=== PATIENT | female | born 1940 | race Caucasian/White ===

== ENCOUNTER 2024-08-29 14:21 | Outpatient (CLI) | payer MEDICARE, SELFPAY ==
--- NOTE | ~2024-08-29 | XR_ITS ---
XR hip LT min 2V Ordering provider: Buddy Cohen MD History: . M25.559 - Pain in unspecified hip . Comparison: None. FINDINGS: BONES: No acute fracture or dislocation. HIP JOINT SPACES: Moderate osteoarthritic changes. SACROILIAC JOINT SPACES/LUMBAR SPINE: The sacroiliac joint spaces shows left sacroiliitis.. Mild dege nerative changes of the visualized lower lumbar spine. PUBIC SYMPHYSIS: Pubic symphysitis. SOFT TISSUES: Normal. IMPRESSION: No acute osseous abnormality pelvis and left hip. Left moderate hip osteoarthritic changes. Reviewed, dictated and finalized at location A.
--- OUTSIDE RECORDS SUMMARY | 2024-08-29 15:19 | XMS_ITS | Encounter Summary ---
Author Organization [facility] Healthcare Address [address] [place] [address] Care Team Providers Care Wire Inserter Name Role Phone Shayne Vaz MD Unavailable Yanique Cota NP Primary Care Provider [phone] Encounter Details Date Type Department Care Team (Late st Contact Info) Description 08/21/2024 Results Follow-Up [facility] Medical Group Primary Care at [address] [address] Yanique Cota NP [address] [place] [address] Urine culture Urine, bladder Social History Tobacco Use Types Packs/Day Years Used Date Smoking Tobacco: Never Passive Smoke Exposure: Never Smokeless Tobacco: Never Alcohol Use Standard Drinks/Week Comments No 0 (1 standard drink = 0.6 oz pur e alcohol) Social Connection and Isolat ion Panel [NHANES] Answer Date Recorded In a typical week, how many times do you talk on the phone with family, friends, or neighbors? More than three times a week 12/21/2022 How often do you get togethe r with friends or relatives? More than three times a week 12/21/2022 How often do you attend [facility] or spiritism services? More than 4 times per year 12/21/2022 Do you belong to any clubs o r organizations such as oriental orthodox groups, unions, fraternal or athletic groups, or school groups? Yes 12/21/2022 How often do you attend meet ings of the clubs or organizations you belong to? More than 4 times per year 12/21/2022 Are you , , di vorced, , never , or living with a partner? 12/21/2022 AUDIT-C Answer Date Recorded Q1: How often do you have a drink containing alcohol? Never 05/01/2024 Q2: How many drinks containi ng alcohol do you have on a typical day when you are drinking? Patient does not drink Q3: How often do you have si x or more drinks on one occasion? Never 05/01/2024 Overall Financial Resource Strain (CARDIA) Answe r Date Recorded How hard is it for you to pa y for the very basics like food, housing, medical care, and heating? Not hard at all 12/21/2022 PHQ-2 Answer Date Recorded PHQ-2 Total Score (If total score is 3 or more points, staff should administer the PHQ-9) 0 08/18/2024 PRAPARE - Transportation Answer Date Re corded In the past 12 months, has l ack of transportation kept you from medical appointments or from getting medications? No 11/2022 In the past 12 months, has l ack of transportation kept you from meetings, work, or from getting things needed for daily living? No 12/21/2022 Housing Stability Vital Sign Answer Gordy e Recorded In the last 12 months, was t here a time when you were not able to pay the mortgage or rent on time? No 12/21/2022 In the last 12 months, how many places have you lived? 1 12/21/2022 In the last 12 months, was t here a time when you did not have a steady place to sleep or slept in a [place] [facility] [place] (including now)? No 12/21/2022 Personal Safety Answer Date Recorded Have you ever been in or are you currently in a harmful physical or emotional relationship or is someone making you feel afraid or unsafe? 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 [address] [place] [address] PCP - General Family Medicine 06/28/23 Shayne Vaz MD [address] [facility] [address] [place] [address] Consulting Physician Neurology 12/19/22 documented as of this encounter
--- OUTSIDE RECORDS SUMMARY | 2024-08-29 15:19 | XMS_ITS | Encounter Summary ---
Author Organization [facility] Healthcare Address [address] [place] [address] Care Team Providers Care Latin American Studies Professor Name Role Phone Shayne Vaz MD Unavailable Yanique Cota DIRECTOR OF RELIGIOUS LIFE Primary Care Provider [phone] Encounter Details Date Type Department Care Team (Late st Contact Info) Description 08/01/2024 Results Follow-Up [facility] Medical Group Primary Care at [address] [address] Zoë Devine NP [address] [place] [address] Thyroid Function [place] Social History Tobacco Use Types Packs/Day Years [...] week 12/21/2022 How often do you attend [facility] or tenriism services? More than 4 times per year 12/21/2022 Do you belong to any clubs o r organizations such as mandaeism groups, unions, fraternal or athletic groups, or [...] points, staff should administer the PHQ-9) 0 05/01/2024 PRAPARE - Transportation Answer Date Re corded [...] place to sleep or slept in a correction (including now)? No 12/21/2022 Personal Safety Answer Date Recorded Have you ever been in or are you currently in a harmful physical or emotional relationship or is someone making you feel afraid or unsafe? 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
--- OUTSIDE RECORDS SUMMARY | 2024-08-29 15:19 | XMS_ITS | Encounter Summary ---
Author Organization [facility] Address [address] [place] [address] Phone Care Team Providers Care Mud Engineer Name Role Phone Vishnu De La Fuente MD Primary Care Provider [phone] Shayne Vaz MD Unavailable Lisa Abreu RN Unavailable [phone] Yanique Cota NP Primary Care Provider [phone] Encounter Details Date Type Department Care Team (Late st Contact Info) Description 03/27/[address] 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 us Historical Provider LAB BLOOD ORDERABLES Emily l Result documented in this encounter Visit Diagnoses Not on filedocumented in this encounter Additional Health Concerns Infection Onset Date Last Indicated Resolved Time COVID: Suspected 12/13/2022 12/13/2022 12/13/2022 4:59 PM CDT documented as of this encounter Care Teams Mud Engineer Relationship Specialty Start Date End Date Vishnu De La Fuente MD PCP - General Internal Medicine 02/03/17 06/27/23 Yanique Cota NP [address] [facility] [address] [place] [address] PCP - General Family Medicine 06/28/23 Shayne Vaz MD [address] [facility] [address] [place] [address] Consulting Physician Neurology 12/19/22 Lisa Abreu RN [address] [place] [address] [address] [place] [address] Oracle Programmer Analyst 12/21/22 01/20/23 documented as of this encounter
--- OUTSIDE RECORDS SUMMARY | 2024-08-29 15:19 | XMS_ITS | Encounter Summary ---
Author Organization [facility] Healthcare Address [address] [place] [address] Care Team Providers Care Spool Cleaner Name Role Phone Shayne Vaz MD Unavailable Yanique Cota NP Primary Care Provider [phone] Reason for Visit * Reason Onset Date Comments Symptom Based Call 08/18/2024 Encounter Details Date Type Department Care Team (Late st Contact Info) Description 08/18/2024 Telephone [facility] Medical Group Primary Care at [address] [place] [address] Yanique Cota NP [address] [place] [address] Symptom Based Call Social History Tobacco Use Types Packs/Day Years [...] week 12/21/2022 How often do you attend chur ch or sikh services? More than 4 times per year 12/21/2022 Do you belong to any clubs o r organizations such as pentecostalism groups, unions, fraternal or athletic groups, or [...] place to sleep or slept in a jail (including now)? No 12/21/2022 Personal Safety Answer Date Recorded Have you ever been in or are you currently in a harmful physical or emotional relationship or is someone making you feel afraid or unsafe? 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 Non-Emergent. Is this a new or reoccurring symptom(s)? new What have you tried to help your symptom(s)? Nothing Why was appointment not scheduled? Patient seeking care without an appointment; appointment was offered by . Additional Comments: patient thinks she may have a uti as she is having crazy dreams No other symptoms Is asking to have an order for a urinalysis sent over to [facility] Does message need to be routed? Yes-Action Needed documented in this encounter Plan of Treatment Not on file documented as of this encounter Visit Diagnoses Not on filedocumented in this encounter Care Teams Spool Cleaner Relationship Specialty Start Date End Date Yanique Cota NP [address] [facility] [address] [place] [address] PCP - General Family Medicine 06/28/23 Shayne Vaz MD [address] [facility] [address] [place] [address] Consulting Physician Neurology 12/19/22 documented as of this encounter
--- OUTSIDE RECORDS SUMMARY | 2024-08-29 15:19 | XMS_ITS | Encounter Summary ---
Author Organization [facility] Address [address] [place] [address] Phone Care Team Providers Care Colorer Hides And Skins Name Role Phone Vishnu De La Fuente MD Primary Care Provider [phone] Shayne Vaz MD Unavailable Lisa Abreu RN Unavailable [phone] Yanique Cota NP Primary Care Provider [phone] Encounter Details Date Type Department Care Team (Late st Contact Info) Description 08/02/2017 Orders Only [facility] ProviderTahir MD [facility] [place] [address] Social History Tobacco Use Types Packs/Day Years Used Date Smoking Tobacco: Never Smokeless Tobacco: Never Alcohol Use Standard Drinks/Week Comments No 0 (1 standard drink = 0.6 oz pur e alcohol) Comments Unknown Sex and Gender Information Value Date Recorded Sex Assigned at Not on file 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 us Historical Provider LAB BLOOD ORDERABLES Emily l Result documented in this encounter Visit Diagnoses Not on filedocumented in this encounter Additional Health Concerns Infection Onset Date Last Indicated Resolved Time COVID: Suspected 12/13/2022 12/13/2022 12/13/2022 4:59 PM CDT documented as of this encounter Care Teams Colorer Hides And Skins Relationship Specialty Start Date End Date Vishnu De La Fuente MD PCP - General Internal Medicine 02/03/17 06/27/23 Yanique Cota NP [address] [facility] [address] [place] [address] PCP - General Family Medicine 06/28/23 Shayne Vaz MD [address] [facility] [address] [place] [address] Consulting Physician Neurology 12/19/22 Lisa Abreu RN [address] [place] [address] [address] [place] [address] Caponizer 12/21/22 01/20/23 documented as of this encounter
--- OUTSIDE RECORDS SUMMARY | 2024-08-29 15:19 | XMS_ITS | Clinical Summary ---
Author Organization [facility] Address [address] [place] [address] Phone Care Team Providers Care Button Machine Operator Name Role Phone Vishnu De La Fuente MD Primary Care Provider [phone] Allergies Active Allergy Reactions Criticality Noted Date Comments Mane Inhibitors Other (see Comments) 12/10/2022 Cough Codeine Nausea,Vomiting 12/10/2022 Hydrocodone Nausea,Vomiting 12/10/2022 Sulfa Antibiotics Nausea,Vomiting 12/10/2022 Gastrointestinal intolerance Medications acetaminophen (TYLENOL) 500 MG Tablet Take 500 mg by mouth. Active ondansetron (ZOFRAN-ODT) 4 MG TABLET DISPERSIBLE DISSOLVE 1 TABLET ON THE TONGUE EVERY 6 HOURS NEEDED 3 Active Eliquis 2.5 MG Tablet Take 2.5 mg by mouth 2 times daily. 3 Active melatonin 3 MG Tablet Take 3 mg by mouth. Active fluticasone (FLONASE) 50 MCG/ACT Suspension SHAKE LIQUID AND USE 2 SPRAYS IN EACH NOSTRIL DAILY 3 Active cloNIDine (CATAPRES TTS) 0.1 MG/24HR PATCH WEEKLY APPLY 1 PATCH TOPICALLY TO THE SKIN 1 TIME A WEEK 3 Active cetirizine (ZyrTEC) 10 MG Tablet TAKE 1/2 TABLET BY MOUTH DAILY 3 Active atorvastatin (LIPITOR) 40 MG Tablet Take 40 mg by mouth daily. 3 Active Oyster Shell Calcium w/D 500-5 MG-MCG Tablet Take 1 by mouth twice daily 2 Active azelastine (ASTELIN) 0.1 % Solution 2 Sprays by Nasal route 2 times daily. Use in each nostril as directed Active Escitalopram Oxalate 5 MG Tablet Take 5 mg by mouth daily. Active levothyroxine (SYNTHROID) 50 MCG Tablet Take 50 mcg by mouth daily. Active omeprazole (PriLOSEC) 20 MG CAPSULE DELAYED RELEASE Take 20 mg by mouth daily. Active Active Problems Problem Noted Date Diagnosed Date Acute metabolic encephalopathy 12/11/2022 Hallucinations 12/11/2022 CKD (chronic kidney disease) stage 3, GFR 30-59 ml/min 12/11/2022 Hyperlipidemia 12/11/2022 Hypothyroidism 12/11/2022 History of pulmonary embolism 12/11/2022 GERD (gastroesophageal reflux disease) Anxiety 12/11/2022 Family History Medical History Relation Name Comments Heart Disease Father Stroke Mother Relation Name Status Comments Father Mother Social History Tobacco Use Types Packs/Day Years Used Date Smoking Tobacco: Never Smokeless Tobacco: Never Tobacco Cessation:Counseling Given: Not Answered Alcohol Use Standard Drinks/Week Comments Not Currently 0 (1 standard drink = 0.6 oz pur e alcohol) Sexually Active Control Partners Comments Not Currently Comments No Sex and Gender Information Value Date Recorded Sex Assigned at Not on file Legal Sex Female 9:15 PM CDT Gender Identity Not on file Sexual Orientation Not on file Last Filed Vital Signs Vital Sign Reading Time Taken Comments Blood Pressure 162/62 12/12/2022 12:00 PM CDT Pulse 71 12/12/2022 12:00 PM CDT Temperature 36.7 C (98.1 F) 12/12/2022 12:00 PM CDT Respiratory Rate 18 12/12/2022 12:00 PM CDT Oxygen Saturation 97% 12/12/2022 12:00 PM CDT Inhaled Oxygen Concentration - - Weight 61.2 kg (135 lb) 12/10/2022 10:45 PM CDT Height 154.9 cm (5' 1) 12/10/2022 10:45 PM CDT Body Mass Index 25.51 12/10/2022 10:45 PM CDT Plan of Treatment Health Maintenance Due Date Last Done Comments DEXA Bone Density 1940 Hepatitis C Virus (HCV) Screening 1940 Respiratory Syncytial Virus (RSV) Immunization (Adult) (1 - 1-dose 75+ series) 2015 SARS-COV-2 Immunization ( - season) 2023 01/21/2021, 05/10/2020, 04/12/2020 Influenza Immunization (Season Ended) 2024 12/22/2021, 01/02/2021, 01/10/2020, Additional history exists Pneumococcal Immunization (50+ years) Completed 01/28/2015, 12/14/2008 Pneumococcal Immunization Combined Discontinued 01/28/2015, 12/14/2008 DTaP/Tdap/Td Immunization Discontinued 08/21/2015, TdaP Immunization Completed 08/21/2015 Zoster Immunization Completed 12/05/2017, 08/21/2017, 11/10/2010 Hepatitis B Immunization Aged Out No longer eligible based on patient's age to complete this topic Human Papillomavirus (HPV) Immunization Aged Out No longer eligible based on patient's age to complete this topic Meningococcal Immunization (ACWY) Aged Out No longer eligible based on patient's age to complete this topic Rotavirus Immunization Aged Out No lo nger eligible based on patient's age to complete this topic Insurance [facility]IC[facility] Advance Directives Documents on File Type Date Recorded Patient Sustainability Consultant Expl anation Power of Central Service Tech for Health Care 12/17/2022 8:49 AM POA-HC, 12/12/2022 Power of Central Service Tech for Health Care 12/12/2022 8:24 AM POA-HC, 02/06/2013 * No CPR-Selective Treatment (Latest Code Status on File) Date Activated Date Inactivated Comments 12/10/2022 9:32 PM 12/12/2022 5:06 PM No CPR - Kiana ective Treatment: FULL ARREST: Do Not Attempt Resuscitation. PRE-ARREST: DO NOT USE INTUBATION OR MECHANICAL VENTILATION, but may use basic medical treatment like CPAP or BiPAP, antibiotics, IV fluids, oxygen, etc. Avoid care in ICU setting. Question Answer Comments Physician documentation made in notes? Yes Care Teams Button Machine Operator Relationship Specialty Start Date End Date Vishnu De La Fuente MD PCP - General Internal Medicine 07/19/17
--- OUTSIDE RECORDS SUMMARY | 2024-08-29 15:20 | XMS_ITS | Clinical Summary ---
Author Organization [facility] Address [address] [place] [address] Care Team Providers Care Art Professor Name Role Phone Shayne Vaz MD Unavailable Yanique Cota NP Primary Care Provider [phone] Allergies Active Allergy Reactions Criticality Noted Date Comments Mane Inhibitors Cough Reaction: Cough, Codeine Nausea only,Vomiting Reaction: Nausea, Vomiting, , Reaction: Nausea, Vomiting, Hydrocodone Other (See comments) Reaction: nausea\E\vomiting, Sulfa (Sulfonamide Antibiotics) Other (See comments) Reaction: nausea\E\vomiting, , Reaction: Gastrointestinal Intolerance, Medications calcium carbonate-vitam in D3 (OS-PHYLLIS 500 + D3) 1,250mg (500mg elemental) - 200 units per tablet Take 1 by mouth twice daily 0 02/16/20 12 Active Additional Information Patient taking differently: 500 tablet oral 2 times daily with meals (bkfst, dinner), Reported on 08/18/2024 multivitamin-mi nerals-lutein (CENTRUM SILVER) tablet Take 1 by mouth daily 0 02/16/20 12 Active Additional Information Patient taking differently: 1 tablet oral Daily, Reported on 08/18/2024 acetaminophen (TYLENOL) 500 mg tablet Take 1 tablet (500 mg total) by mouth every 6 (six) hours as needed for pain Taking 2 tablets every 4 - 6 hours for pain Active fluticasone propionate (FLONASE) 50 mcg/actuation nasal sprayIndication s:Allergic Rhinitis Administer 2 sprays into each nostril daily 16 g 5 09/26/19 23 Active turmeric root extract 500 mg capsule Take 1 capsule by mouth daily Active azelastine (ASTELIN) 137 mcg (0.1 %) nasal spray Administer 1 spray into each nostril 2 (two) times a day Use in each nostril as directed 30 mL 01/15/20 23 Active carvediloL (COREG) 25 mg tablet TAKE 1 TABLET(25 MG) BY MOUTH TWICE DAILY WITH MEALS 180 tablet 3 11/05/19 24 Active Eliquis 2.5 mg tablet TAKE 1 TABLET BY MOUTH TWICE DAILY 60 tablet 03/06/20 24 Active cetirizine (ZyrTEC) 10 mg tablet TAKE 1/2 TABLET BY MOUTH DAILY 30 tablet 11 03/20/19 25 Active gabapentin (NEURONTIN) 100 mg capsule Take 1 capsule (100 mg total) by mouth 2 (two) times a day 04/13/19 25 Active cholecalciferol (VITAMIN D-3) 2000 unit capsule 1 capsule (2,000 Units total) Active atorvastatin (LIPITOR) 40 mg tabletIndicatio ns:Hypercholest erolemia Take 1 tablet (40 mg total) by mouth daily 90 tablet 3 05/01/19 25 Active omeprazole (PriLOSEC) 20 mg capsuleIndicati ons:Gastroesoph ageal reflux disease without esophagitis Take 1 capsule (20 mg total) by mouth daily 90 capsule 3 05/01/19 25 Active irbesartan (AVAPRO) 300 mg tabletIndicatio ns:Benign hypertension TAKE 1 TABLET(300 MG) BY MOUTH DAILY 90 tablet 3 06/20/19 25 Active escitalopram (LEXAPRO) 5 mg tablet TAKE 1 TABLET(5 MG) BY MOUTH DAILY 90 tablet 3 07/06/19 25 Active donepeziL (ARICEPT) 10 mg tablet TAKE 1 TABLET BY MOUTH DAILY 90 tablet 08/02/19 25 Active levothyroxine (SYNTHROID) 25 mcg tabletIndicatio ns:Hypothyroidi sm, unspecified type TAKE 1 TABLET(25 MCG) BY MOUTH DAILY 90 tablet 3 08/17/19 25 Active donepeziL (ARICEPT) 10 mg tabletIndicatio ns:Moderate to Severe Alzheimer's Type Dementia TAKE 1 TABLET BY MOUTH DAILY 90 tablet 06/29/19 25 2024 Discontinued levothyroxine (SYNTHROID) 25 mcg tabletIndicatio ns:Hypothyroidi sm, unspecified type Take 1 tablet (25 mcg total) by mouth daily 30 tablet 07/22/19 25 2024 Discontinued pregabalin (LYRICA) 75 mg capsule Take 1 capsule (75 mg total) by mouth 08/17/19 25 2024 Discontinued(P atient Reported) Active Problems Problem Noted Date Diagnosed Date Abnormal dreams 08/18/2024 Assessment & Plan (08/18/2024 2:32 PM CDT): -Acute, new -UA in office today appears to be negative for UTI. Sent for culture for verification -Possibly related to pregabalin. Advised patient to reach out to pain management to let them know the side effect and to inquire if she should wean off this medication rather than stopping abruptly. -Patient will also be following up with Neurology in about 2 weeks. Advised patient to keep this appointment and let her neurologist know about these abnormal dreams -Advised patient our office will call her in 1 week to see how she is doing Chronic bilateral back pain 05/01/2024 Assessment & Plan (08/18/2024 2:34 PM CDT): -chronic, not at/near goal -Discussed/ordered labs -Gabapentin was discontinued due to side effects. -Pregabalin possibly causing abnormal dreams. Advised patient to reach out to pain management to let them know the side effect and to inquire if she should wean off this medication rather than stopping abruptly. -Continue seeing pain management -Patient reports she will be seeing a back surgeon soon Assessment & Plan (05/01/2024 1:13 PM NUCLEAR ENGINEER): -chronic, not at/near goal -Discussed/ordered labs -Patient will be getting a steroid injection in her back today -continue on gabapentin 100 mg twice daily -Continue seeing Dr. Stokes pain management Mixed stress and urge urinary incontinence 05/01 Assessment & Plan (05/01/2024 1:16 PM NUCLEAR ENGINEER): -chronic, not at/near goal -Discussed/ordered labs -Referral sent to urology Mild late onset Alzheimer's dementia without behavioral disturbance, psychotic disturbance, mood disturbance, or anxiety 12/21/2023 Assessment & Plan (08/18/2024 2:34 PM CDT): -Chronic, stable -Continue on donepezil 10 mg daily -Continue follow up with Dr. Dumas neurology -Advised patient to let her neurologist know at her upcoming appointment about the abnormal dreams she is having Prediabetes 06/30/2023 Assessment & Plan (05/01/2024 1:16 PM NUCLEAR ENGINEER): -chronic, worsening -Discussed/ordered labs -recommend healthy, low carb diet and increase exercise Assessment & Plan (10/29/2023 2:56 PM CDT): -chronic, stable -Discussed/ordered labs -recommend healthy, low carb diet and increase exercise Assessment & Plan (06/30/2023 11:52 AM CDT): -chronic, new -Discussed/ordered labs -recommend healthy, low carb diet and increase exercise Mild protein-calorie malnutrition 12/14/2022 Edema 10/22/2022 Assessment & Plan (10/22/2022 6:02 PM CDT): Try to hold off on diuretics considering chronic kidney disease. Renal function improved off spironolactone. Avoid salt keep legs elevated and try compression hose. Anxiety with depression 09/26/2022 Assessment & Plan (05/01/2024 12:36 PM NUCLEAR ENGINEER): -chronic, stable -Discussed/ordered labs -continue on escitalopram 5 mg daily Patient reiterated no suicidal thoughts at this time; take medication as directed; contact 911 and go to the ER if becomes suicidal; discussed side effects of medication with patient; encouraged healthy diet and exericise; encouraged patient to see a counselor Assessment & Plan (06/30/2023 11:50 AM CDT): -chronic, stable -Discussed/ordered labs -continue on escitalopram 5 mg daily Patient reiterated no suicidal thoughts at this time; take medication as directed; contact 911 and go to the ER if becomes suicidal; discussed side effects of medication with patient; encouraged healthy diet and exericise; encouraged patient to see a counselor Assessment & Plan (09/26/2022 6:25 AM CDT): Acute problem- new problem Patient dealing with a lot of personal problems, loss of family members and friends Will trial Escitalopram 5 mg 1 tablet daily We discussed medication and side effects-patient advised if the medication causes drowsiness, if she experiences this, she may take in evening which could also help with her sleep disturbance Patient advised this medication may cause upset stomach, however it normally subsides after first week, if she has vomiting, stop taking and call for appointment Denies suicidal or homicidal ideations at this time Behavioral counseling would be beneficial Follow up in 2 weeks or as scheduled-new medication and depression Thrombocytopenia 08/29/2020 Assessment & Plan (05/01/2024 1:16 PM NUCLEAR ENGINEER): -chronic, stable -Discussed/ordered labs Assessment & Plan (06/30/2023 11:47 AM CDT): -chronic, stable -Discussed/ordered labs Assessment & Plan (10/22/2022 6:00 PM CDT): Mild chronic stable and asymptomatic. Check again 1 year. Assessment & Plan (04/07/2021 2:47 PM NUCLEAR ENGINEER): CBC normalized. Assessment & Plan (08/29/2020 1:53 PM CDT): Mild and asymptomatic. Check CBC again before next visit. Hematology referral if needed. Anemia 08/22/2019 Overview (04/07/2021): Laboratory workup March 2021 unremarkable Assessment & Plan (05/01/2024 12:36 PM NUCLEAR ENGINEER): -chronic, stable -Discussed/ordered labs -continue on daily multivitamin Assessment & Plan (06/30/2023 11:51 AM CDT): -chronic, stable -Discussed/ordered labs -continue on daily multivitamin Assessment & Plan (10/22/2022 6:00 PM CDT): Mild chronic and stable. Workup March 2021 unremarkable. Check again down the road. Assessment & Plan (04/07/2021 2:47 PM NUCLEAR ENGINEER): CBC normalized and laboratory workup unrevealing. Assessment & Plan (08/29/2020 1:53 PM CDT): Thyroid studies normal. Possibly from renal dysfunction. Check labs before next visit. Assessment & Plan (02/22/2020 1:58 PM NUCLEAR ENGINEER): Hemoglobin improved. Assessment & Plan (08/22/2019 3:27 PM CDT): B12 folate and iron levels today and call back for results. Thyroid currently normal. Chronic rhinitis 11/17/2018 Assessment & Plan (05/01/2024 12:36 PM NUCLEAR ENGINEER): -chronic, stable Discussed environmental controls No smoking around patient, no animals in bedroom, keep windows closed, no hanging clothes on the line Take zyrtec/claritin/laura in the am Saline rinse in the am Flonase 1 sprays each nostril, aim away from cartilage, spray once-baby sniff, switch to the other nostril and repeat. Saline rinse about 15 min before bed Flonase 1 sprays each nostril, aim away from cartilage, spray once-baby sniff, switch to the other nostril and repeat. If working or playing outside, may need to do saline rinses when coming in and change clothes right away Recommend staying on the above treatment from the beginning of May to Come off of meds if possible during the summer Then restart on meds mid to late October until Thanks Come off of meds if possible during the winter Assessment & Plan (06/30/2023 11:49 AM CDT): -chronic, stable Discussed environmental controls No smoking around patient, no animals in bedroom, keep windows closed, no hanging clothes on the line Take zyrtec/claritin/laura in the am Saline rinse in the am Flonase 1 sprays each nostril, aim away from cartilage, spray once-baby sniff, switch to the other nostril and repeat. Saline rinse about 15 min before bed Flonase 1 sprays each nostril, aim away from cartilage, spray once-baby sniff, switch to the other nostril and repeat. If working or playing outside, may need to do saline rinses when coming in and change clothes right away Recommend staying on the above treatment from the beginning of May to Come off of meds if possible during the summer Then restart on meds mid to late October until Thanks Come off of meds if possible during the winter Assessment & Plan (07/23/2021 11:01 AM CDT): I believe most of her symptoms are due to chronic seasonal allergic rhinitis. Change Zyrtec to Laura intake on a daily basis. Increase azelastine to twice daily. Restart fluticasone. Call back if no improvement for montelukast. Assessment & Plan (02/15/2019 10:55 AM NUCLEAR ENGINEER): Azelastine and or fluticasone and or Zyrtec as needed. Assessment & Plan (11/24/2018 5:19 PM CDT): Add azelastine nasal spray to her fluticasone and Zyrtec. If symptoms improve then she can stop either the fluticasone or Zyrtec. Assessment & Plan (11/17/2018 4:40 PM CDT): Nasal mucosa is erythematous and edematous. Instructed patient on importance of using a nasal spray such as Flonase two sprays each nostril once a day. Educated patient on ensuring during use the spray is to be inserted by the tip and point it towards the same side ear. Flonase can be purchased over the counter. Allergies can flare with the change of the weather/season or around harvest time. Patient instructed to follow up in office if symptoms worsen or persist. BMI 27.0-27.9,adult 11/17/2018 Assessment & Plan (11/17/2018 4:40 PM CDT): Recommended patient to continue to increase heart healthy diet with adequate fruits, vegetables, and plenty of water along with mild-moderate daily exercise as tolerated. Osteopenia of hip 02/15/2018 Overview (02/15/2018): T score -1.3 left hip 08/2017 Assessment & Plan (05/01/2024 1:15 PM NUCLEAR ENGINEER): -chronic, stable -Discussed/ordered labs -continue on calcium and vitamin-D supplement daily -Last bone density completed 12/28/2023. Repeat in 2 years Assessment & Plan (10/29/2023 2:56 PM CDT): -chronic, stable -Discussed/ordered labs -continue on calcium and vitamin-D supplement daily -bone density screening ordered today Assessment & Plan (06/30/2023 11:48 AM CDT): -chronic, stable -Discussed/ordered labs -continue on calcium and vitamin-D supplement daily -advised patient to complete ordered bone density screening Assessment & Plan (10/22/2022 5:59 PM CDT): Repeat bone density scan her convenience and call back for results. Assessment & Plan (08/29/2020 1:53 PM CDT): Calcium, vitamin-D, weight-bearing exercise repeat bone density scan before next visit. Assessment & Plan (08/22/2019 3:25 PM CDT): Calcium, vitamin-D, weight-bearing exercise repeat bone density scan after next visit to try and avoid COVID -19 related issues. Assessment & Plan (08/17/2018 8:20 PM CDT): Calcium, vitamin-D, weight-bearing exercise and repeat bone density scan August 2019. Hypothyroidism 08/12/2017 Assessment & Plan (05/01/2024 1:15 PM NUCLEAR ENGINEER): -chronic, not at/near goal -Discussed/ordered labs -Start on levothyroxine 25 mcg daily -Recheck thyroid level in 6 weeks. Assessment & Plan (10/29/2023 1:41 PM CDT): -chronic, stable -Discussed/ordered labs -continue on levothyroxine 50 mcg daily Assessment & Plan (06/30/2023 11:48 AM CDT): -chronic, stable -Discussed/ordered labs -continue on levothyroxine 50 mcg daily Assessment & Plan (05/11/2023 6:40 PM NUCLEAR ENGINEER): Patient is asymptomatic on current dose of levothyroxine and TSH free T4 are normal and we will repeat levels before next visit. Assessment & Plan (12/23/2022 1:06 PM CDT): Continue current dose of levothyroxine check TSH before next visit Assessment & Plan (10/22/2022 5:59 PM CDT): Patient is asymptomatic on current dose of levothyroxine and TSH free T4 are normal and we will repeat levels before next visit. Assessment & Plan (04/15/2022 10:53 AM NUCLEAR ENGINEER): Patient is asymptomatic on current dose of levothyroxine and TSH free T4 are normal and we will repeat levels before next visit. Assessment & Plan (10/08/2021 10:52 AM CDT): Patient is asymptomatic on current dose of levothyroxine and TSH free T4 are normal and we will repeat levels before next visit. Assessment & Plan (04/07/2021 2:47 PM NUCLEAR ENGINEER): Patient is asymptomatic on current dose of levothyroxine and TSH free T4 are normal and we will repeat levels before next visit. Assessment & Plan (08/29/2020 1:53 PM CDT): Patient is asymptomatic on current dose of levothyroxine and TSH free T4 are normal and we will repeat levels before next visit. Assessment & Plan (02/22/2020 1:57 PM NUCLEAR ENGINEER): Patient is asymptomatic on current dose of levothyroxine and TSH free T4 are normal and we will repeat levels before next visit. Assessment & Plan (08/22/2019 3:26 PM CDT): Patient is asymptomatic on current dose of levothyroxine and TSH free T4 are normal and we will repeat levels before next visit. Assessment & Plan (02/15/2019 10:55 AM NUCLEAR ENGINEER): Patient is asymptomatic on current dose of levothyroxine and TSH free T4 are normal and we will repeat levels before next visit. Assessment & Plan (08/17/2018 8:19 PM CDT): Patient is asymptomatic on current dose of levothyroxine and TSH free T4 are normal and we will repeat levels before next visit. Assessment & Plan (03/12/2018 7:11 PM NUCLEAR ENGINEER): Patient is asymptomatic on current dose of levothyroxine and TSH free T4 are normal and we will repeat levels before next visit. Assessment & Plan (08/12/2017 2:30 PM CDT): New diagnosis. Start levothyroxine 50 mcg daily. Check TSH and free T4 in 6 weeks. Call back for results. Also check before next visit. Stage 3b chronic kidney disease 08/12/2017 Assessment & Plan (05/01/2024 1:15 PM NUCLEAR ENGINEER): -chronic, not at/near goal -Discussed/ordered labs -continue drinking plenty of water and avoiding NSAIDs -Patient had been referred to Nephrology but she did not make an appointment. Patient would like to hold off on seeing Nephrology at this time Assessment & Plan (10/29/2023 2:55 PM CDT): -chronic, worsening -Discussed/ordered labs -continue drinking plenty of water and avoiding NSAIDs -referral sent to nephrology Assessment & Plan (06/30/2023 11:49 AM CDT): -chronic, stable -Discussed/ordered labs -continue drinking plenty of water and avoiding NSAIDs Assessment & Plan (05/11/2023 6:39 PM NUCLEAR ENGINEER): Renal function stable and should avoid NSAIDs. Assessment & Plan (10/22/2022 5:59 PM CDT): Renal function improved with out spironolactone. Continue avoiding NSAIDs if able. Assessment & Plan (09/26/2022 6:54 AM CDT): Chronic problem-stable Last creat 1.49- this has improved from 1.54 Maintain hydration Continue to monitor Avoid use of NSAID's and like products- Ibuprofen, aleve, Motrin, celebrex, meloxicam Assessment & Plan (10/08/2021 10:52 AM CDT): Let us try holding her furosemide for now. Maintain adequate hydration. Avoid NSAIDs. Assessment & Plan (04/07/2021 2:47 PM NUCLEAR ENGINEER): Repeat metabolic panel today and call back for results. I would assume that her increase in BUN and creatinine were due to her viral syndrome and dehydration and is hopefully better today. Assessment & Plan (08/29/2020 1:53 PM CDT): Renal function stable and should avoid NSAIDs. Assessment & Plan (02/22/2020 1:58 PM NUCLEAR ENGINEER): Renal function stable and should avoid NSAIDs. Assessment & Plan (08/22/2019 3:26 PM CDT): Renal function stable and should avoid NSAIDs. Assessment & Plan (02/15/2019 10:55 AM NUCLEAR ENGINEER): Renal function improved and should avoid NSAIDs. Assessment & Plan (08/17/2018 8:19 PM CDT): Renal function stable and should avoid NSAIDs. Assessment & Plan (03/12/2018 7:11 PM NUCLEAR ENGINEER): Renal function stable and should avoid NSAIDs. Assessment & Plan (08/12/2017 2:30 PM CDT): Renal function improving with reduced dose of omeprazole and furosemide and increased hydration. Avoid NSAIDs. History of pulmonary embolus (PE) 02/03/2017 Overview (04/06/2017): Unprovoked PE 01/2015. Choosing indefinite anticoagulation. Assessment & Plan (05/01/2024 1:15 PM NUCLEAR ENGINEER): -chronic, stable -Discussed/ordered labs -continue on Eliquis 2.5 mg twice daily Assessment & Plan (10/29/2023 2:55 PM CDT): -chronic, stable -Discussed/ordered labs -continue on Eliquis 2.5 mg twice daily Assessment & Plan (06/30/2023 11:49 AM CDT): -chronic, stable -Discussed/ordered labs -continue on Eliquis 2.5 mg twice daily- coupon card given Assessment & Plan (09/26/2022 6:17 AM CDT): Chronic- well controlled with current regimen Continue Eliquis 2.5 mg bid Assessment & Plan (10/08/2021 10:51 AM CDT): Continue Eliquis indefinitely. Assessment & Plan (08/29/2020 1:52 PM CDT): Continue Eliquis indefinitely. Assessment & Plan (04/05/2020 1:58 PM NUCLEAR ENGINEER): Continue her Eliquis unless she has significant nasal bleeding.. Assessment & Plan (02/22/2020 1:57 PM NUCLEAR ENGINEER): Continue Eliquis. Assessment & Plan (08/22/2019 3:26 PM CDT): Continue Eliquis indefinitely Assessment & Plan (08/17/2018 8:19 PM CDT): Continue Eliquis. Assessment & Plan (03/12/2018 7:10 PM NUCLEAR ENGINEER): Continue Eliquis. Assessment & Plan (04/06/2017 1:00 PM NUCLEAR ENGINEER): Continue indefinite low-dose Eliquis. Assessment & Plan (02/03/2017 1:45 PM NUCLEAR ENGINEER): Asymptomatic in office today without any concerns of Pe. Patient is anticoagulated with Eliquis twice daily to prevent recurrent PE/emboli formation. advised patient to stop Eliquis starting Wednesday in order to stop it 5 days prior to surgery to resume the day after surgery. Lipoma 08/21/2014 Overview (06/18/2016): Lipoma Gastroesophageal reflux disease 06/27/2014 Overview (04/06/2017): Failed ranitidine due to ineffectiveness. Assessment & Plan (05/01/2024 12:36 PM NUCLEAR ENGINEER): -chronic, stable Continue on current meds omeprazole 20 mg daily, encouraged healthy diet and exercise Avoid trigger foods including: carbonated beverages, caffeine, spicy, fried foods, tomatoes, cucumbers, mint, and acidic fruits/juices like orange/lemon/grapefruit. Avoid eating/drinking anything for at least 2 hours before bed. Sleep with bed propped. Discussed increased risk of cdif , bone loss and vit B12 deficiency with fdc use of PPI with pt, would like to remain on medication at this time Assessment & Plan (06/30/2023 11:49 AM CDT): -chronic, stable Continue on current meds omeprazole 20 mg daily, encouraged healthy diet and exercise Avoid trigger foods including: carbonated beverages, caffeine, spicy, fried foods, tomatoes, cucumbers, mint, and acidic fruits/juices like orange/lemon/grapefruit. Avoid eating/drinking anything for at least 2 hours before bed. Sleep with bed propped. Discussed increased risk of cdif , bone loss and vit B12 deficiency with fdc use of PPI with pt, would like to remain on medication at this time Assessment & Plan (08/22/2019 3:26 PM CDT): Continue current PPI and the patient is aware of the long-term risks posed by chronic PPI usage. Magnesium level will be checked periodically. Calcium supplementation recommended. Assessment & Plan (11/24/2018 5:18 PM CDT): Continue current PPI and the patient is aware of the long-term risks posed by chronic PPI usage. Magnesium level will be checked periodically. Calcium supplementation recommended. Assessment & Plan (08/17/2018 8:19 PM CDT): Continue current PPI and the patient is aware of the long-term risks posed by chronic PPI usage. Magnesium level will be checked periodically. Calcium supplementation recommended. Assessment & Plan (03/12/2018 7:10 PM NUCLEAR ENGINEER): Continue current PPI and the patient is aware of the long-term risks posed by chronic PPI usage. Magnesium level will be checked periodically. Calcium supplementation recommended. Assessment & Plan (08/12/2017 2:29 PM CDT): Well controlled on reduced dose of omeprazole. She is aware long-term risks posed by this medication. Check magnesium level occasionally. Assessment & Plan (04/06/2017 12:59 PM NUCLEAR ENGINEER): Decrease omeprazole to 20 mg daily. Patient aware long-term risk posed by chronic PPI usage including chronic kidney disease. Declines trial of H2 blockers as she has already failed these. Lifestyle modifications discussed. Assessment & Plan (02/03/2017 1:17 PM NUCLEAR ENGINEER): Continue dietary management and Prilosec once daily for control. PPI risk benefit discussed in office today. Follow up in four months regarding condition Primary insomnia 10/24/2013 Overview (04/06/2017): Many years of lorazepam and trazodone. Assessment & Plan (05/01/2024 1:16 PM NUCLEAR ENGINEER): -chronic, improving -Discussed/ordered labs -continue seeing Neurology Assessment & Plan (06/30/2023 11:48 AM CDT): -chronic, stable -Discussed/ordered labs -continue seeing Neurology -continue on ramelteon 8 mg nightly Assessment & Plan (05/11/2023 6:40 PM NUCLEAR ENGINEER): Continue ramelteon and follow-up with Neurology as needed. Assessment & Plan (02/02/2023 11:45 AM NUCLEAR ENGINEER): Has been on lorazepam and trazadone in the past. Patient reports trazadone made her sick to her stomach. She has been on seroquel 12.5mg nightly since hospital discharged, she sleeps well but she feels tired the next day after taking. Trial ramelteon 8mg nightly. Assessment & Plan (09/26/2022 6:20 AM CDT): Chronic problem-stable Patient not taking trazodone-states sleep improved and controlled with melatonin States she was also taking ativan, however it made her blood pressure drop too much so she tries to not take it Continue OTC melatonin as directed Continue to monitor Assessment & Plan (02/22/2020 1:57 PM NUCLEAR ENGINEER): Well controlled on her trazodone. Assessment & Plan (03/12/2018 7:10 PM NUCLEAR ENGINEER): Slowly increased melatonin. If no improvement by 10 mg nightly, increase trazodone. Assessment & Plan (08/12/2017 2:29 PM CDT): Well controlled on trazodone only. Assessment & Plan (04/06/2017 12:58 PM NUCLEAR ENGINEER): Recommend trying to slowly cut down on her Ativan use half tablet nightly for 1 month and then try to cut down to a quarter tablet nightly thereafter. Continue trazodone. Sleep hygiene discussed. Benign paroxysmal positional vertigo 07/29/2013 Overview (06/18/2016): BENIGN PARXYSMAL VERTIGO Assessment & Plan (06/30/2023 11:50 AM CDT): -chronic, stable -Discussed/ordered labs -patient reports she only experiences this with ear infections Assessment & Plan (09/26/2022 6:15 AM CDT): Chronic problem-stable with current medication Continue with OTC Antivert(dramamine) use as directed- recommend lowest dose(12.5 mg or 1/2 tablet) due to use of Zyrtec Continue zyrtec 10 mg- take half tablet (5 mg) daily Change positions slowly Stay hydrated- drink water throughout the day Benign neoplasm of large intestine 07/29/2013 Overview (06/18/2016): BENIGN NEOPLASM LG BOWEL Primary hypertension 07/29/2013 Overview (06/18/2016): BENIGN HYPERTENSION Assessment & Plan (08/18/2024 2:35 PM CDT): -chronic, not at/near goal -blood pressure elevated in office today above 140/90 -Discussed/ordered labs -continue on carvedilol 25 mg twice daily, irbesartan 150 mg daily -recommend healthy, low-salt diet -Advised patient to check blood pressure daily for the next week. Advised patient our office will call her in 1 week to check on the readings Assessment & Plan (05/01/2024 1:14 PM NUCLEAR ENGINEER): -chronic, stable -Discussed/ordered labs -continue on carvedilol 25 mg twice daily, irbesartan 150 mg daily -recommend healthy, low-salt diet -Patient had been referred to Nephrology but she did not make an appointment. Patient would like to hold off on seeing Nephrology at this time Assessment & Plan (10/29/2023 2:55 PM CDT): -chronic, not at/near goal- patient's blood pressure elevated in office today -Discussed/ordered labs -continue on carvedilol 25 mg twice daily, irbesartan 150 mg daily -recommend healthy, low-salt diet -advised patient to check blood pressure at home and send me a log of the readings. -referral sent to Nephrology Assessment & Plan (06/30/2023 11:52 AM CDT): -chronic, not at/near goal- patient's blood pressure elevated in office today -patient reports her blood pressure is always high in the office -Discussed/ordered labs -continue on carvedilol 25 mg twice daily, irbesartan 150 mg daily -recommend healthy, low-salt diet -follow up in 1 week for nurse visit to recheck blood pressure Assessment & Plan (05/11/2023 6:39 PM NUCLEAR ENGINEER): Blood pressure well controlled on carvedilol, irbesartan Assessment & Plan (12/23/2022 1:05 PM CDT): Monitor blood pressure over the next month and give me an update. For now continue carvedilol and irbesartan current doses. Avoid salt. Assessment & Plan (10/22/2022 5:59 PM CDT): Pressure well controlled on carvedilol, clonidine, irbesartan Assessment & Plan (09/26/2022 6:11 AM CDT): Chronic problem- normally well controlled at home with current medications Patient anxious this visit Continue irbesartan 75 mg daily, carvedilol 6.25 mg bid, and clonidine 0.1 mg transdermal patch daily Continue to monitor at home Recommend DASH diet, heart-healthy lifestyle, exercise. Discussed the risks of hypertension. Assessment & Plan (04/15/2022 10:53 AM NUCLEAR ENGINEER): Well controlled on her irbesartan clonidine and carvedilol Assessment & Plan (10/08/2021 10:51 AM CDT): Well controlled on the current regimen. Avoidance of salt, proper body weight, and routine exercise recommended. Assessment & Plan (04/07/2021 2:47 PM NUCLEAR ENGINEER): Well controlled on the current regimen. Avoidance of salt, proper body weight, and routine exercise recommended. Assessment & Plan (08/29/2020 1:52 PM CDT): Well controlled on the current regimen. Avoidance of salt, proper body weight, and routine exercise recommended. Assessment & Plan (04/05/2020 1:57 PM NUCLEAR ENGINEER): Well controlled on the current regimen. Avoidance of salt, proper body weight, and routine exercise recommended. Assessment & Plan (02/22/2020 1:57 PM NUCLEAR ENGINEER): Well controlled on the current regimen. Avoidance of salt, proper body weight, and routine exercise recommended. Assessment & Plan (08/22/2019 3:27 PM CDT): Well controlled on the current regimen. Avoidance of salt, proper body weight, and routine exercise recommended. Assessment & Plan (02/15/2019 10:55 AM NUCLEAR ENGINEER): Well controlled on the current regimen. Avoidance of salt, proper body weight, and routine exercise recommended. Assessment & Plan (11/24/2018 5:19 PM CDT): Blood pressure seem fairly well controlled and do not suspect them to be causing her symptoms. Will go ahead and stop her furosemide due to low-dose with no recurrence of her edema. She will monitor for edema and her blood pressures and call back with any questions. Assessment & Plan (11/17/2018 4:41 PM CDT): Patient instructed to continue with BP log. We will decrease Lasix to 10 mg every other day from 20 mg every other day at this time. Patient states last time she tried to stop the medication she began noticing lower extremity edema pretty quickly. Will follow up in 1-2 weeks for re-evaluation certainly sooner if any worsening symptoms. Patient should provide a BP log with next visit. Notify office with any concerns including but not limited to BP over 140/90 or less than 100/50. Patient verbalized understanding agreed to plan of care at this time. Assessment & Plan (08/17/2018 8:21 PM CDT): Not well controlled today. Check blood pressure at home and call back if not below 140/90. Assessment & Plan (03/12/2018 7:10 PM NUCLEAR ENGINEER): Well controlled on the current regimen. Avoidance of salt, proper body weight, and routine exercise recommended. Assessment & Plan (08/12/2017 2:30 PM CDT): Well controlled on the current regimen. Avoidance of salt, proper body weight, and routine exercise recommended. Assessment & Plan (04/06/2017 1:03 PM NUCLEAR ENGINEER): Labile over the years but seems to have evened out. Continue current medication regimen. We will see her back in 6 months for wellness visit fasting lab sooner if needed. Assessment & Plan (02/03/2017 1:14 PM NUCLEAR ENGINEER): Stable. Pt was advised of continuing heart healthy DASH diet, increase exercise as tolerated, and continuing to monitor for any lower leg edema, headaches, changes in vision, or facial flushing. Continue ASA and anti-hypertensives as prescribed. Assessment & Plan (10/22/2016 11:41 AM CDT): Hypertension is controlled Hypercholesterolemia 02/12/2012 Overview (06/18/2016): Hypercholesterolemia Assessment & Plan (05/01/2024 12:53 PM NUCLEAR ENGINEER): -chronic, stable -Discussed/ordered labs -continue on atorvastatin 40 mg daily Assessment & Plan (10/29/2023 1:41 PM CDT): -chronic, stable -Discussed/ordered labs -continue on atorvastatin 40 mg daily Assessment & Plan (06/30/2023 11:49 AM CDT): -chronic, stable -Discussed/ordered labs -continue on atorvastatin 40 mg daily Assessment & Plan (05/11/2023 6:40 PM NUCLEAR ENGINEER): Well controlled on current therapy and will check a lipid panel and LFTs in 6 months. Assessment & Plan (12/23/2022 1:06 PM CDT): Continue atorvastatin check lipids and LFTs before next visit Assessment & Plan (10/22/2022 5:59 PM CDT): Well controlled on current therapy and will check a lipid panel and LFTs in 6 months. Assessment & Plan (04/15/2022 10:53 AM NUCLEAR ENGINEER): Well controlled on current therapy and will check a lipid panel and LFTs in 6 months. Assessment & Plan (10/08/2021 10:51 AM CDT): Well controlled on current therapy and will check a lipid panel and LFTs in 12 months. Assessment & Plan (04/07/2021 2:47 PM NUCLEAR ENGINEER): Well controlled on current therapy and will check a lipid panel and LFTs in 6 months. Assessment & Plan (08/29/2020 1:52 PM CDT): Well controlled on current therapy and will check a lipid panel and LFTs in 6 months. Assessment & Plan (02/22/2020 1:56 PM NUCLEAR ENGINEER): Well controlled on current therapy and will check a lipid panel and LFTs in 6 months. Assessment & Plan (08/22/2019 3:26 PM CDT): Well controlled on current therapy and will check a lipid panel and LFTs in 12 months. Assessment & Plan (02/15/2019 10:55 AM NUCLEAR ENGINEER): Well controlled on current therapy and will check a lipid panel and LFTs in 6 months. Assessment & Plan (08/17/2018 8:19 PM CDT): Well controlled on current therapy and will check a lipid panel and LFTs in 6 months. Assessment & Plan (03/12/2018 7:10 PM NUCLEAR ENGINEER): Well controlled on current therapy and will check a lipid panel and LFTs in 6 months. Assessment & Plan (08/12/2017 2:29 PM CDT): Well controlled on current therapy and will check a lipid panel and LFTs in 6 months. Assessment & Plan (04/06/2017 12:58 PM NUCLEAR ENGINEER): Well controlled on current therapy and will check a lipid panel and LFTs in 6 months. Assessment & Plan (02/03/2017 1:16 PM NUCLEAR ENGINEER): Stable. Needs labs repeated in 1 months. Continue current dose of Lipitor, heart healthy diet, and increase exercise. Follow up in 1 month regarding condition for repeat labs Resolved Problems Problem Noted Date Diagnosed Date Resolved Date Altered mental status 12/23/20222023 Urinary tract infection with out hematuria, site unspecified 12/13/2022 06/28/2023 Acute metabolic encephalopathy 12/11/2022 06/28/2023 Assessment & Plan (02/02/2023 11:46 AM NUCLEAR ENGINEER): MRI, MRA and EEG while inpatient without significant findings. She was treated for UTI and mental status improved. Monitor. Anxiety 12/11/2022 06/28/2023 Hallucinations 12/11/2022 06/28/2023 Assessment & Plan (12/23/2022 1:05 PM CDT): Continue nighttime Seroquel for now. Follow-up with neurology as they direct. Repeat urine testing if returns in the future. Acute hyponatremia 09/26/2022 Assessment & Plan (09/26/2022 6:41 AM CDT): Acute problem- new finding during ER visit Na++ 130 Aldactone stopped on discharge from ER Labs ordered- to be obtained prior to her next visit with pcp Acute hyperkalemia 09/26/2022 Assessment & Plan (09/26/2022 6:47 AM CDT): Acute problem- new finding during ER visit K+ 5.3 This could be due to electrolyte imbalance second to decreased fluid intake and use of aldactone- medication stopped on discharge Continue to monitor Drink plenty of water Labs ordered to be obtained prior to next visit Elevated C-reactive protein (CRP) 09/26/2022 06/28/2023 Assessment & Plan (09/26/2022 6:56 AM CDT): Acute problem- new finding during ER visit CRP- 17.0 this elevation could be in relation to her recurrent otitis media infection and sinus inflammation versus cardiac relation Continue to monitor Encounter for follow-up exam ination after completed treatment for conditions other than malignant neoplasm 09/25/2022 06/28/2023 Assessment & Plan (09/26/2022 6:50 AM CDT): I personally reviewed H&P documentation by Dr. Brizuela from ER visit at [facility] on 09/20/22. I also reviewed patient labs, ecg tracing, cxr, and head ct scan that were obtained in ER at [facility] on 09/20/22. Please see assessment and plan section for reports Medications reviewed and reconciled this visit Follow up with pcp as scheduled Acute suppurative otitis media 07/23/2021 06/28/2023 Assessment & Plan (09/26/2022 6:06 AM CDT): Acute on chronic- improved Completed Z-pack antibiotic as prescribed from ER visit Avoid getting water in ears Avoid cleaning ears with Q-tips or other objects ENT consult ordered Assessment & Plan (07/23/2021 11:01 AM CDT): Azithromycin for acute otitis media as she reports failures to amoxicillin in the past. Acute frontal sinusitis 04/05/202006/13 Assessment & Plan (09/26/2022 6:05 AM CDT): Acute on chronic problem- stable Continue with fluticasone 50 mcg- 2 sprays each nostril nightly- if bloody discharge occurs- hold for 1 week Saline flushes prn Ent consult ordered- Dr. Sethi- mucosal thickening present on imaging during ER visit Assessment & Plan (04/05/2020 1:57 PM NUCLEAR ENGINEER): Augmentin and saline sinus rinses. Hold fluticasone for a week due to bloody discharge. call back if no improvement. Right serous otitis media 12/20/2017 Assessment & Plan (12/20/2017 3:50 PM CDT): Recommended Ceftin twice daily for 10 days along with continue her Flonase [id number] probiotics with use of antibiotics, use of a humidifier vaporizer for the mild sinus congestion on the right side was also advised following up in office with any persistence in symptoms Medicare annual wellness visit, subsequent 08/12/2017 06/28/2023 Assessment & Plan (10/22/2022 6:00 PM CDT): We discussed a comprehensive list of medical conditions and proposed recommendations for each. We discussed the importance of increased exercise, fall prevention, proper nutrition, and suggested joining [facility] to accomplish most of these goals. Patient was given an age appropriate Medicare preventive services checklist. Please see the EMR regarding details of their health risk assessment and preventive services checklist. Will see her back in 6 months with lab sooner if needed Assessment & Plan (10/08/2021 10:52 AM CDT): We discussed a comprehensive list of medical conditions and proposed recommendations for each. We discussed the importance of increased exercise, fall prevention, proper nutrition, and suggested joining [facility] to accomplish most of these goals. Patient was given an age appropriate Medicare preventive services checklist. Please see the EMR regarding details of their health risk assessment and preventive services checklist. Will see her back in 6 months with lab sooner if needed. Assessment & Plan (08/29/2020 1:54 PM CDT): We discussed a comprehensive list of medical conditions and proposed recommendations for each. We discussed the importance of increased exercise, fall prevention, proper nutrition, and suggested joining [facility] to accomplish most of these goals. Patient was given an age appropriate Medicare preventive services checklist. Please see the EMR regarding details of their health risk assessment and preventive services checklist. Will see her back in 6 months with lab sooner if needed. Assessment & Plan (08/22/2019 3:27 PM CDT): We discussed a comprehensive list of medical conditions and proposed recommendations for each. We discussed the importance of increased exercise, fall prevention, proper nutrition, and suggested joining [facility] to accomplish most of these goals. Patient was given an age appropriate Medicare preventive services checklist. Please see the EMR regarding details of their health risk assessment and preventive services checklist. Will see her back in 6 months with lab sooner if needed. Assessment & Plan (08/17/2018 8:20 PM CDT): We discussed a comprehensive list of medical conditions and proposed recommendations for each. We discussed the importance of increased exercise, fall prevention, proper nutrition, and suggested joining [facility] to accomplish most of these goals. Patient was given an age appropriate Medicare preventive services checklist. Please see the EMR regarding details of their health risk assessment and preventive services checklist. Will see her back in 6 months sooner if needed. Assessment & Plan (08/12/2017 2:31 PM CDT): We discussed a comprehensive list of medical conditions and proposed recommendations for each. We discussed the importance of increased exercise, fall prevention, proper nutrition, and suggested joining [facility] to accomplish most of these goals. Patient was given an age appropriate Medicare preventive services checklist. Please see the EMR regarding details of their health risk assessment and preventive services checklist. Will see her back in 6 months for thyroid studies A1c blood pressure check sooner if needed At low risk for fall 08/12/201706/27/ 024 Assessment & Plan (10/22/2022 6:00 PM CDT): Timed get up and go test normal. Assessment & Plan (10/08/2021 10:53 AM CDT): Timed get up and go test normal. Assessment & Plan (08/29/2020 1:54 PM CDT): Timed get up and go test normal. Assessment & Plan (08/22/2019 3:27 PM CDT): Timed get up and go test normal. Assessment & Plan (08/17/2018 8:21 PM CDT): Timed get up and go test normal. Assessment & Plan (08/12/2017 2:31 PM CDT): Timed get up and go test normal. Impaired fasting glucose 08/12/2017 Assessment & Plan (05/11/2023 6:40 PM NUCLEAR ENGINEER): Patient should reduce sugar and carbs, increase exercise, maintain proper body weight, and will check an A1c once or twice yearly. Assessment & Plan (10/22/2022 5:59 PM CDT): Patient should reduce sugar and carbs, increase exercise, maintain proper body weight, and will check an A1c once or twice yearly. Assessment & Plan (04/15/2022 10:52 AM NUCLEAR ENGINEER): Patient should reduce sugar and carbs, increase exercise, maintain proper body weight, and will check an A1c once or twice yearly. Assessment & Plan (10/08/2021 10:52 AM CDT): Warned of impending diagnosis of diabetes. Avoid sugars and carbs and increase exercise. Check A1c and fasting blood sugar before next visit. Assessment & Plan (04/07/2021 2:47 PM NUCLEAR ENGINEER): Patient should reduce sugar and carbs, increase exercise, maintain proper body weight, and will check an A1c once or twice yearly. Assessment & Plan (08/29/2020 1:53 PM CDT): Patient should reduce sugar and carbs, increase exercise, maintain proper body weight, and will check an A1c once or twice yearly. Assessment & Plan (02/22/2020 1:58 PM NUCLEAR ENGINEER): Patient should reduce sugar and carbs, increase exercise, maintain proper body weight, and will check an A1c once or twice yearly. Assessment & Plan (08/22/2019 3:26 PM CDT): Patient should reduce sugar and carbs, increase exercise, maintain proper body weight, and will check an A1c once or twice yearly. Assessment & Plan (02/15/2019 10:54 AM NUCLEAR ENGINEER): Patient should reduce sugar and carbs, increase exercise, maintain proper body weight, and will check an A1c once or twice yearly. Assessment & Plan (08/17/2018 8:19 PM CDT): Patient should reduce sugar and carbs, increase exercise, maintain proper body weight, and will check an A1c once or twice yearly. Assessment & Plan (03/12/2018 7:11 PM NUCLEAR ENGINEER): Patient should reduce sugar and carbs, increase exercise, maintain proper body weight, and will check an A1c once or twice yearly. Assessment & Plan (08/12/2017 2:30 PM CDT): Patient should reduce sugar and carbs, increase exercise, maintain proper body weight, and will check an A1c once or twice yearly. Preoperative clearance 02/03/201708/12 Assessment & Plan (02/03/2017 1:21 PM NUCLEAR ENGINEER): Pt was advised to continue current therapy and medications for chronic conditions as previously as advised. Continue with healthy dietary management as well. Pt offered no additional complaints today in office. Preoperative medical clearance: Pt is medically stable and aware there are risk associated with surgery and anesthesia. He states the surgeon has reviewed these risk in detail with patient, and wishes to proceed with surgery. They are medically cleared for surgery once all labs and other diagnostics (EKG) have been received and reviewed.Patient was advised to stop her eliquis 7 days prior to surgery. Pt was instructed to contact the office with absolutely any changes prior to and post surgery. We will see them back here as scheduled, or certainly sooner as needed. BMI 30.0-30.9,adult 02/03/2017 04/06/19 18 Assessment & Plan (02/03/2017 1:13 PM NUCLEAR ENGINEER): Recommended patient to continue to increase heart healthy diet with adequate fruits, vegetables, and plenty of water along with mild-moderate daily exercise as tolerated. Chronic kidney disease (CKD) stage G3a/A2, moderately decreased glomerular filtration rate (GFR) between 45-59 mL/min/1.73 square meter and albuminuria creatinine ratio between 30-299 mg/g 12/30/2016 08/12/2017 Assessment & Plan (04/06/2017 1:00 PM NUCLEAR ENGINEER): Likely due to age and hypertension. Will stop furosemide for now to see if it has any effect on her swelling. Hopefully this will improve her creatinine as well. Avoid NSAIDs. Assessment & Plan (02/03/2017 1:13 PM NUCLEAR ENGINEER): Most recent set of labs indicated a stable creatinine of 1.6. Continue with monitoring of blood pressure/hypertension control to further control renal disease. Continue with adequate hydration in her healthy exercise. Follow-up in 3 months regarding condition BMI 29.0-29.9,adult 12/14/2016 02/04/20 17 Assessment & Plan (12/14/2016 3:52 PM CDT): Recommended patient to continue to increase heart healthy diet with adequate fruits, vegetables, and plenty of water along with mild-moderate daily exercise as tolerated. Right maxillary sinusitis 12/14/2016 Assessment & Plan (12/14/2016 3:53 PM CDT): Recommended Ceftin 250 mg b.i.d. for 10 days along with continuing her cetirizine and Flonase nasal spray. I advised patient of the vertigo she is experiencing is likely secondary to her maxillary sinusitis, however, if symptoms seem to worsen or certainly if they do not improve after therapy recommended office today to follow up in our office regarding this condition. Medication management 08/31/20162018 Healthcare maintenance 08/31/201608/16 Gastroenteritis 06/27/2014 08/12/2017 Overview (06/18/2016): Gastroenteritis Status migrainosus 07/29/2013 Overview (06/18/2016): OTHR MIGRNE WO [facility] Encounters Date Type Department Care Team Description 08/25/2024 Orders Only [facility] Primary Care at [address] [place] [address] Yanique Cota NP 08/25/2024 Telephone [facility] Primary Care at [address] [place] [address] Yanique Cota NP Medical Question/Miscellaneo us 08/21/2024 Results Follow-Up [facility] Primary Care at [address] [place] [address] Yanique Cota NP Urine culture Urine, bladder 08/18/2024 1:16 PM CDT - 08/18/2024 11:59 PM CDT Hospital Encounter [address] [address] Abnormal dreams; Dysuria Discharge Disposition: Discharge to home or self care 08/18/2024 1:00 PM CDT Office Visit [facility] Primary Care at [address] [place] [address] Yanique Cota NP Abnormal dreams (Primary Dx); Dysuria; Chronic bilateral low back pain with bilateral sciatica; Mild late onset Alzheimer's dementia without behavioral disturbance, psychotic disturbance, mood disturbance, or anxiety (HCC); Primary hypertension 08/18/2024 Orders Only [facility] Primary Care at [address] [place] [address] Yanique Cota NP 08/18/2024 Telephone [facility] Primary Care at [address] [place] [phone] Yanique Cota NP Symptom Based Call 08/01/2024 Results Follow-Up [facility] Primary Care at [address] [place] [phone] Zoë Devine NP Thyroid Function [place] 07/31/2024 9:10 AM CDT Lab [address] [address] Hypothyroidism, unspecified type 07/21/2024 Orders Only [facility] Primary Care at [address] [place] [phone] Yanique Cota NP Hypothyroidism, unspecified type 06/28/2024 Orders Only [facility] [address] [place] [address] [address] [place] [phone] Kelley Walker, FRANCISCO 06/28/2024 Telephone [facility] [address] [place] [address] [address] [place] [phone] Kelley Walker, FRANCISCO from Last 3 Months Immunizations Immunization Administration Dates Next Due Influenza, Quadrivalent, Hig h Dose, Preservative Free, Intrr 12/19/2022,12/22/2021,01/02/2021,01/09 Influenza, Split 12/17/2010,11/27/2009 Influenza, Trivalent, High D ose, Split, Preservative Free, Intramuscular 12/15/2023,11/24/2018,01/10/2018,12/30,01/08/2016,12/26/2014,01/01/2014 ,01/01/2014,12/08/2012 Influenza, Trivalent, IM (MDV) 12/13/2014,2008,12/08/2007 Influenza, Unspecified 11/17/2018(Deferr ed: Patient ill today) Moderna SARS-CoV-2 Monovalen t Vaccination (12+ YRS) 05/10/2020,04/12/2020 Pneumococcal Conjugate PCV 13 01/28/2015 Pneumococcal Polysaccharide PPV23 12/14/2008 Td, adsorbed 10/01/2009 Tdap 08/21/2015 ZOSTER LIVE 11/10/2010 ZOSTER Recombinant 12/06/2017, 8,08/22/2017,08/21 Surgical History Surgery Date Site/Laterality Comments BLADDER SURGERY 03/15/2002 - 03/14/2003 bladder sling HYSTERECTOMY Hysterectomy OTHER SURGICAL HISTORY ant cervical discectomy BREAST BIOPSY 03/15/2009 - 03/14/2010 Breast biopsy OTHER SURGICAL HISTORY 03/15/2010 - 03/14/2011 Right thumb CMC osteoarthritis/trigger thumb: Right thumb [facility] resection arthroplasty / trigger thumb release OTHER SURGICAL HISTORY 03/15/2006 - 03/14/2007 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): Left thumb CMC joint resection arthroplasty OTHER SURGICAL HISTORY Hysterectomy 1981 OTHER SURGICAL HISTORY Breast biopsy 1991 OTHER SURGICAL HISTORY glaucoma surgery 2001 OTHER SURGICAL HISTORY Cervical disc [id number] OTHER SURGICAL HISTORY Arthoscopic left knee surgery 2000 OTHER SURGICAL HISTORY partial hysterectomy / uterus removed OTHER SURGICAL HISTORY herniated cervical disc fusion OTHER SURGICAL HISTORY Right Breast biopsies x 2 / benign KNEE ARTHROSCOPY Left Arthroscopy knee OTHER SURGICAL HISTORY Spark support sling OTHER SURGICAL HISTORY left thumb surgery FOOT SURGERY right foot surgery OTHER SURGICAL HISTORY right thumb surgery OTHER SURGICAL HISTORY Laser surgery both eyes OTHER SURGICAL HISTORY excisional left upper extremity subcu mass OTHER SURGICAL HISTORY 03/15/2014 - 03/14/2015 PE: Medical Management LUMBAR SPINE SURGERY 02/10/2017 Left L4-5 and L5-S1 Far lateral foraminotomies, Dr Vicki DUNBAR FLUORO GUIDED LUMBAR PUNCTURE 02/17/2024 Right Medical History Medical History Date Comments 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 Hx Other Medical 02-ORTHO 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 Hx Other Medical CMC L OA Hypertension Hypertension Hyperlipidemia Hyperlipidemia Hx Other Medical 05/13/2010 joint surg trig danitza finger Hx Other Medical Right thumb CMC osteoarthritis/trigger thumb Hx Other Medical 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) Hx Other Medical 07/08/2012 Foot surgery; L aterality: right Hx Other Medical Hypertension Hx Other Medical lazer eye surge ry-Right Hx Other Medical lazer eye surge ry-Left Hx Other Medical Herniated disc; Comments: GDS 08/22/2014 - Hx Other Medical PE; Outcome: im proved Hx Other Medical Cataract L eye Hx Other Medical Cataract R eye Medication monitoring encounter Family History Medical History Relation Name Comments Kidney cancer Brother 1 Cancer, kidney ; Other Brother 2 mouth cancer / chewed tobacco; Heart attack Father Myocardial infa rction; Cause of : Myocardial infarction/Myocardial infarction; Cause of : Myocardial infarction Heart disease Father Heart disease; Hypertension Father Hypertension; Hypertension Mother Hypertension; / Hypertension; Stroke Mother Stroke; /Stroke ; Cause of : Stroke Diabetes Other 1 Grandmother Diabetes mellit us; Cancer Other 2 Brother Cancer; Relation Name Status Comments Brother 1 Brother 2 Father Mother Alive Other 1 Grandmother Alive Other 2 Brother Alive Social History Tobacco Use Types Packs/Day Years Used Date Smoking Tobacco: Never Passive Smoke Exposure: Never Smokeless Tobacco: Never Tobacco Cessation:Counseling Given: Not Answered Alcohol Use Standard Drinks/Week Comments No 0 [...] any clubs o r organizations such as cheondoism groups, unions, fraternal or athletic groups, or [...] place to sleep or slept in a skilled nursing (including now)? No 12/21/2022 Personal Safety Answer Date Recorded Have you ever been in or are you currently in a harmful physical or emotional relationship or is someone making you feel afraid or unsafe? 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 Gender Identity Not on file Sexual Orientation Not on file Obstetrics History Para Term AB IAB SAB Ectopic Multiple Livin g Live Births 2 2 2 Date Outcome GA Total Labor Labor/2nd/3rd Weight Sex Type Anes PTL Samina A1 A5 Name Clin Term Term Last Filed Vital Signs Vital Sign Reading Time Taken Comments Blood Pressure 187/60 08/18/2024 1:32 PM CDT Pulse 58 08/18/2024 1:00 PM CDT Temperature 36.4 C (97.6 F) 08/18/2024 1:00 PM CDT Respiratory Rate 14 08/18/2024 1:00 PM CDT Oxygen Saturation 97% 08/18/2024 1:00 PM CDT Inhaled Oxygen Concentration - - Weight 65.8 kg (145 lb) 08/18/2024 1:00 PM CDT Height 156.2 cm (5' 1.5) 08/18/2024 1:00 PM CDT Body Mass Index 26.96 08/18/2024 1:00 PM CDT Plan of Treatment Health Maintenance Due Date Last Done Comments Covid-19 Vaccine (4 - 2023-2 5 season) 2023 01/21/2021, 05/10/2020, 04/12/2020 Well Visit 65+ 10/28/2024 10/29/2023, 10/13, 10/08/2021, Additional history exists Depression Screening 08/18/2025 08/18/2024, 05/01/2024, 10/29/2023, Additional history exists Fall Risk Assessment 08/18/2025 08/18/2024, 05/01/2024, 02/17/2024, Additional history exists DTaP/Tdap/Td Vaccine (2 - Td or Tdap) 08/20/2025 08/21/2015, 10/01/2009 Osteoporosis Screening-Bone Density Scan 12/27/2025 12/28/2023, 09/18/2020, 08/18/2017, Additional history exists Colon Cancer Screening-CT Colonography Discontinued 09/07/2012, 09/07/2012 Colon Cancer Screening-Colonoscopy Discontinued 09/07/2012, 09/07/2012 Colon Cancer Screening-DNA Stool Discontinued 09/08/19 13, 09/07/2012 Colon Cancer Screening-FIT Discontinued 09/07/2012, Colon Cancer Screening-Sigmoidoscopy Discontinued 09/07/2012, 09/07/2012 Pneumococcal vaccine 65+ Completed 01/28/2015, 04/2008 Zoster Vaccine Completed 12/06/2017, 11/14, 08/22/2017, Additional history exists Breast Cancer Screening-Mammogram Discontinued 01/27/2023, 01/05/2022, 01/05/2022, Additional history exists Hepatitis B Screening Completed 10/21/2023 Influenza Vaccine Completed 12/15/2023, , 12/22/2021, Additional history exists Procedures Procedure Name Priority Date/Time Associated Diagnosis Comments URINE CULTURE Routine 08/18/2024 1:16 PM CDT Abnormal dreams Dysuria POCT URINALYSIS DIPSTICK Routine 08/18/2024 1:09 PM CDT Abnormal dreams Dysuria THYROID FUNCTION CASCADE Routine 07/31/2024 9:38 AM CDT Hypothyroidism, unspecified type DEXA AXIAL SKELETON BONE DENSITY 1 OR MORE SITES Schedule Routine, Read Routine (OP Routine) 12/28/2023 1:11 PM CDT Osteoporosis screening Postmenopausal SCREENING MAMMOGRAM BILATERAL W FAN Schedule Routine, Read Routine (OP Routine) 01/27/2023 11:25 AM NUCLEAR ENGINEER Screening mammogram for breast cancer HM COLONOSCOPY Routine 09/07/2012 from Last 3 Months or Most Recently Relevant to Health Maintenance Results * Urine culture Urine, bladder (08/18/2024 1:16 PM CDT) Report Final Report: Less than 100,000 colonies/mL (clinically insignificant growth based on current clinical standards) Comment:Testing performed by : [facility], [address] [place] [address] Organism (CLINICALLY INSIGNIFICANT GROWTH MICHAEL Urine, bladder 08/18/2024 1: 16 PM CDT 08/18/2024 10:22 PM CDT Narrative MICHAEL JONAS - 08/20/2024 6:17 AM CDT Testing performed by [facility] ([phone]) [facility] - GENERAL O RDERABLES Final Result MICHAEL [id number] Department [place] [address] * POCT urinalysis dipstick (08/18/2024 1:09 PM CDT) Color, Urine, POC Yellow Clarity, ur, POC Clear Clear Glucose, ur, POC Negative Negative Bilirubin, ur, POC Negative Negative Ketones, ur, POC Negative Negative Specific Doran, POC 1.010 1.003 - 1.030 Blood, ur, POC Negative Negative pH, ur, POC 6.0 5.0 - 8.0 Protein, ur, POC Negative Negative Urobilinogen, urine, POC 0.2 0.2 - 1.0 mg/dL Nitrite, ur, POC Negative Negative Leukocytes, ur, POC Negative Negative Lot Number [id number] 10\ Urine 08/18/2024 1:09 PM CDT us Yanique Cota NP POINT OF CARE TEST ORDERABLE S Final Result * Thyroid Function [place] (07/31/2024 9:38 AM CDT) TSH 2.28 0.30 - 4.20 mcIUnit/mL Blood 07/31/2024 9:38 AM CDT 07/31/2024 10:08 AM CDT us Yanique Cota NP LAB BLOOD ORDERABLES Final R esult MICHAEL [facility] ([address] Department of Laboratories [place], [place] [id number] * Dexa Axial Skeleton Bone Density 1 or 2 Site (12/28/2023 1:11 PM CDT) Anatomical Region Laterality Modality Body N/A Other 12/28/2023 7:26 PM CDT Narrative 12/28/2023 7:28 PM CDT EXAM DESCRIPTION: DEXA AXIAL SKELETON BONE DENSITY 1 OR MORE SITES REASON FOR STUDY: 83 y/o year old F with given history of: Post menopausal status. Patient takes vitamin-D and calcium. Divine Healer/Model: Green Is Good (S/N [id number]) CLINICAL INFORMATION: Current height: 61 inches Maximum height: 62 inches Weight: 144.8 pounds Risk factors: COMPARISON: None available. Dissimilar scan types or analysis methods precludes assessment for calculating a significant change. FINDINGS: AP LUMBAR SPINE L1-L4: Total BMD is 1.152 g/cm2 T-score is 1.0 LEFT HIP: Total BMD is 0.836 g/cm2 T-score is -0.9 Femoral neck BMD is 0.650 g/cm2 T-score is -1.8 FRAX: 10 year risk for a major osteoporotic fracture is 14 %, 10 year risk for a hip fracture is 4.1 % IMPRESSION: Low bone mass REFERENCE: Bone mineral density: T-Score: Normal (T-score above or = -1.0) Low bone mass (T-score between -1.0 and -2.5) replaces the previously used term osteopenia Osteoporosis (T-score = or below -2.5) Z-Score: Within the expected range for age (Z-score above -2.0) Below the expected range for age (Z-score is -2.0 or below) Please see below follow up recommendations. Medical evaluation for secondary causes of low bone mineral density may be appropriate. FRAX is a World Health Organization validated fracture risk assessment tool that calculates a person's 10 year probability of a major osteoporosis related fracture and hip fracture. According to the National Osteoporosis Foundation guidelines, postmenopausal women and men age 50 or older with low bone mass and a 10 year probability of a major osteoporosis related fracture = or greater than 20% or a 10 year probability of a hip fracture = or greater than 3% should be considered for pharmacological treatment for the prevention of osteoporosis. For further information, including treatment recommendations, please refer to the 2019 ISCD Official Positions (http://www.iscd.org) and the NOF's Clinician's Guide to Prevention and Treatment of Osteoporosis (http://www.nof.org/professionals/clinical-guidelines) THIS IS AN ELECTRONICALLY VERIFIED FINAL REPORT 12/28/2023 7:28 PM - Electronically signed by Zainab Jacinto M.D. TW: TW Report ID: [id number] Reading Location: [id number] Procedure Note Zainab Jacitno MD - 12/28/2023 EXAM DESCRIPTION: DEXA AXIAL SKELETON BONE DENSITY 1 OR MORE SITES REASON FOR STUDY: 83 y/o year old F with given history of: Post menopausal status. Patient takes vitamin-D and calcium. Divine Healer/Model: Active-Semi SL (S/N [id number]) CLINICAL INFORMATION: Current height: 61 inches Maximum height: 62 inches Weight: 144.8 pounds Risk factors: COMPARISON: None available. Dissimilar scan types or analysis methods precludes assessment for calculating a significant change. FINDINGS: AP LUMBAR SPINE L1-L4: Total BMD is 1.152 g/cm2 T-score is 1.0 LEFT HIP: Total BMD is 0.836 g/cm2 T-score is -0.9 Femoral neck BMD is 0.650 g/cm2 T-score is -1.8 FRAX: 10 year risk for a major osteoporotic fracture is 14 %, 10 year risk for ahip fracture is 4.1 % IMPRESSION: Low bone mass REFERENCE: Bone mineral density: T-Score: Normal (T-score above or = -1.0) Low bone mass (T-score between -1.0 and -2.5) replaces thepreviously used term osteopenia Osteoporosis (T-score = or below -2.5) Z-Score: Within the expected range for age (Z-score above -2.0) Below the expected range for age (Z-score is -2.0 or below) Please see below follow up recommendations. Medical evaluation forsecondary causes of low bone mineral density may be appropriate. FRAX is a World Health Organization validated fracture risk assessmenttool that calculates a person's 10 year probability of a major osteoporosisrelated fracture and hip fracture. According to the National OsteoporosisFoundation guidelines, postmenopausal women and men age 50 or older with low bonemass and a 10 year probability of a major osteoporosis related fracture = or greater than 20% or a 10 year probability of a hip fracture = or greaterthan 3% should be considered for pharmacological treatment for the preventionof osteoporosis. For further information, including treatment recommendations, please referto the 2019 ISCD Official Positions (http://www.iscd.org) and the NOF's Clinician's Guide to Prevention and Treatment of Osteoporosis (http://www.nof.org/professionals/clinical-guidelines) THIS IS AN ELECTRONICALLY VERIFIED FINAL REPORT 12/28/2023 7:28 PM - Electronically signed by Zainab Jacinto M.D. TW: TW Report ID: [id number] Reading Location: [id number] Yanique Cota NP IMG DXA PROCEDURES Final Res ult * Screening Mammogram Bilateral W Fan (01/27/2023 11:25 AM NUCLEAR ENGINEER) Anatomical Region Laterality Modality Breast Bilateral Mammography 01/29/2023 8:12 AM NUCLEAR ENGINEER Impressions 01/29/2023 8:12 AM NUCLEAR ENGINEER There is no mammographic evidence of malignancy. A 1 year screening mammogram is recommended. BI-RADS: 2 - Benign. The patient has been or will be contacted. The patient will be entered into a reminder system with a target due date of 1 year for her next mammogram. Electronically signed by: Nathalia Mei M.D. Narrative 01/29/2023 8:12 AM NUCLEAR ENGINEER EXAMINATION: SCREENING MAMMOGRAM BILATERAL W FAN ORDERING HEALTHCARE PROVIDER: BONY DE LA FUENTE HISTORY: Routine screening mammography. COMPARISON: 11/05/2021, 12/02/2020, 10/17/2019 TECHNIQUE: CC and MLO views of the bilateral breasts were obtained with digital technique using breast tomosynthesis with C view. Computer aided detection was utilized. FINDINGS: DENSITY: The tissue of the bilateral breasts is heterogeneously dense, which may obscure small masses. BREASTS: Post procedural scar is noted in the right breast. There are benign bilateral microcalcifications. There are no suspicious masses, suspicious calcifications, or other suspicious findings in either breast. There has been no suspicious interval change. 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 Expl anation ADVANCE DIRECTIVE 12/21/2022 9:42 AM Power of Duplicating Machine Mechanic-Medical * Full Code (Latest Code Status on File) Date Activated Date Inactivated Comments 02/17/2024 10:13 AM 02/18/2024 4:52 AM * Full Code Date Activated Date Inactivated Comments 12/13/2022 7:35 PM 12/19/2022 4:48 PM Healthcare Agents on File Name Relationship Healthcare Agent [facility] p Communication Brandon Delcid Son [facility] [employer] e Agent Care Teams Art Professor Relationship Specialty Start Date End Date Yanique Cota NP [address] [place] [address] PCP - General Family Medicine 06/28/23 Shayne Vaz MD [address] [facility] [address] [facility] [place] [address] Consulting Physician Neurology 12/19/22
--- OUTSIDE RECORDS SUMMARY | 2024-08-29 15:20 | XMS_ITS | Referral Summary ---
Author Organization [facility] Address [address] [place] [id number] Care Team Providers Care Trust Manager Name Role Phone Shayne Vaz MD Unavailable Yanique Cota NP Primary Care Provider [phone] Encounters Date Type Department Care Team Description 08/25/2024 Orders Only [facility] Primary Care at [address] [place] [phone] Yanique Cota NP 08/25/2024 Telephone [facility] Primary Care at [address] [place] [phone] Yanique Cota NP Medical Question/Miscellaneo us 08/21/2024 Results Follow-Up [facility] Primary Care at [address] [place] [phone] Yanique Cota NP Urine culture Urine, bladder 08/18/2024 1:16 PM CDT - 08/18/2024 11:59 PM CDT Hospital Encounter [address] [address] Abnormal dreams; Dysuria Discharge Disposition: Discharge to home or self care 08/18/2024 1:00 PM CDT Office Visit [facility] Primary Care at [address] [phone] Yanique Cota NP Abnormal dreams (Primary Dx); Dysuria; Chronic bilateral low back pain with bilateral sciatica; Mild late onset Alzheimer's dementia without behavioral disturbance, psychotic disturbance, mood disturbance, or anxiety (HCC); Primary hypertension 08/18/2024 Orders Only [facility] Primary Care at [address] [phone] Yanique Cota NP 08/18/2024 Telephone [facility] Primary Care at [address] [phone] Yanique Cota NP Symptom Based Call 08/01/2024 Results Follow-Up [facility] Primary Care at [address] [phone] Zoë Devine NP Thyroid Function [place] 07/31/2024 9:10 AM CDT Lab [facility] [address] [place] [address] Hypothyroidism, unspecified type 07/21/2024 Orders Only [facility] Primary Care at [address] [phone] Yanique Cota NP Hypothyroidism, unspecified type 06/28/2024 Orders Only [facility] [address] [place] [address] Kelley Walker, FRANCISCO 06/28/2024 Telephone [facility] [address] [place] [address] [address] [place] [phone] Kelley Walker NP from Last 3 Months Allergies Active Allergy Reactions Criticality Noted Date [...] in each nostril as directed 30 mL 11 01/15/20 23 Active carvediloL (COREG) 25 mg tablet TAKE 1 TABLET(25 MG) BY MOUTH TWICE DAILY WITH MEALS 180 tablet 3 11/05/19 24 Active Eliquis 2.5 mg tablet TAKE 1 TABLET BY MOUTH TWICE DAILY 60 tablet 11 03/06/20 24 Active cetirizine (ZyrTEC) 10 mg [...] soon Assessment & Plan (05/01/2024 1:13 PM [employer]): -chronic, not at/near goal -Discussed/ordered labs -Patient will be getting a steroid injection in her back today -continue on gabapentin 100 mg twice daily -Continue seeing Dr. Stokes pain management Mixed stress and urge urinary incontinence 05/01 Assessment & Plan (05/01/2024 1:16 PM [employer]): -chronic, not at/near goal -Discussed/ordered labs -Referral [...] 06/30/2023 Assessment & Plan (05/01/2024 1:16 PM [employer]): -chronic, worsening -Discussed/ordered labs -recommend healthy, low [...] 09/26/2022 Assessment & Plan (05/01/2024 12:36 PM [employer]): -chronic, stable -Discussed/ordered labs -continue on escitalopram [...] 08/29/2020 Assessment & Plan (05/01/2024 1:16 PM [employer]): -chronic, stable -Discussed/ordered labs Assessment & Plan (06/30/2023 11:47 AM CDT): -chronic, stable -Discussed/ordered labs Assessment & Plan (10/22/2022 6:00 PM CDT): Mild chronic stable and asymptomatic. Check again 1 year. Assessment & Plan (04/07/2021 2:47 PM [employer]SEMBLER): CBC normalized. Assessment & Plan (08/29/2020 1:53 PM CDT): Mild and asymptomatic. Check CBC again before next visit. Hematology referral if needed. Anemia 08/22/2019 Overview (04/07/2021): Laboratory workup March 2021 unremarkable Assessment & Plan (05/01/2024 12:36 PM [employer]): -chronic, stable -Discussed/ordered labs -continue on daily multivitamin Assessment & Plan (06/30/2023 11:51 AM CDT): -chronic, stable -Discussed/ordered labs -continue on daily multivitamin Assessment & Plan (10/22/2022 6:00 PM CDT): Mild chronic and stable. Workup March 2021 unremarkable. Check again down the road. Assessment & Plan (04/07/2021 2:47 PM [employer]BLER): CBC normalized and laboratory workup unrevealing. Assessment & Plan (08/29/2020 1:53 PM CDT): Thyroid studies normal. Possibly from renal dysfunction. Check labs before next visit. Assessment & Plan (02/22/2020 1:58 PM [employer]ER): Hemoglobin improved. Assessment & Plan (08/22/2019 3:27 PM CDT): B12 folate and iron levels today and call back for results. Thyroid currently normal. Chronic rhinitis 11/17/2018 Assessment & Plan (05/01/2024 12:36 PM [employer]): -chronic, stable Discussed environmental controls No smoking [...] staying on the above treatment from the of May to Come off of meds if possible during the summer Then restart on meds mid to october until Thanksgiving Come off of meds if possible during [...] staying on the above treatment from the of May to Come off of meds if possible during the summer Then restart on meds mid to october until Thanksgiving Come off of meds if possible during the winter Assessment & Plan (07/23/2021 11:01 AM CDT): I believe most of her symptoms are due to chronic seasonal allergic rhinitis. Change Zyrtec to Laura intake on a daily basis. Increase azelastine to twice daily. Restart fluticasone. Call back if no improvement for montelukast. Assessment & Plan (02/15/2019 10:55 AM [employer]BLER): Azelastine and or fluticasone and or Zyrtec [...] 08/2017 Assessment & Plan (05/01/2024 1:15 PM [employer]ER): -chronic, stable -Discussed/ordered labs -continue on calcium [...] 08/12/2017 Assessment & Plan (05/01/2024 1:15 PM [employer]ER): -chronic, not at/near goal -Discussed/ordered labs -Start on levothyroxine 25 mcg daily -Recheck thyroid level in 6 weeks. Assessment & Plan (10/29/2023 1:41 PM CDT): -chronic, stable -Discussed/ordered labs -continue on levothyroxine 50 mcg daily Assessment & Plan (06/30/2023 11:48 AM CDT): -chronic, stable -Discussed/ordered labs -continue on levothyroxine 50 mcg daily Assessment & Plan (05/11/2023 6:40 PM [employer]BLER): Patient is asymptomatic on current dose of [...] visit. Assessment & Plan (04/15/2022 10:53 AM [employer]SEMBLER): Patient is asymptomatic on current dose of levothyroxine and TSH free T4 are normal and we will repeat levels before next visit. Assessment & Plan (10/08/2021 10:52 AM CDT): Patient is asymptomatic on current dose of levothyroxine and TSH free T4 are normal and we will repeat levels before next visit. Assessment & Plan (04/07/2021 2:47 PM [employer]BLER): Patient is asymptomatic on current dose of levothyroxine and TSH free T4 are normal and we will repeat levels before next visit. Assessment & Plan (08/29/2020 1:53 PM CDT): Patient is asymptomatic on current dose of levothyroxine and TSH free T4 are normal and we will repeat levels before next visit. Assessment & Plan (02/22/2020 1:57 PM [employer]BLER): Patient is asymptomatic on current dose of levothyroxine and TSH free T4 are normal and we will repeat levels before next visit. Assessment & Plan (08/22/2019 3:26 PM CDT): Patient is asymptomatic on current dose of levothyroxine and TSH free T4 are normal and we will repeat levels before next visit. Assessment & Plan (02/15/2019 10:55 AM [employer]BLER): Patient is asymptomatic on current dose of levothyroxine and TSH free T4 are normal and we will repeat levels before next visit. Assessment & Plan (08/17/2018 8:19 PM CDT): Patient is asymptomatic on current dose of levothyroxine and TSH free T4 are normal and we will repeat levels before next visit. Assessment & Plan (03/12/2018 7:11 PM [employer]BLER): Patient is asymptomatic on current dose of [...] 08/12/2017 Assessment & Plan (05/01/2024 1:15 PM [employer]ER): -chronic, not at/near goal -Discussed/ordered labs -continue [...] NSAIDs Assessment & Plan (05/11/2023 6:39 PM [employer]SEMBLER): Renal function stable and should avoid NSAIDs. [...] NSAIDs. Assessment & Plan (04/07/2021 2:47 PM [employer] ASSEMBLER): Repeat metabolic panel today and call back for results. I would assume that her increase in BUN and creatinine were due to her viral syndrome and dehydration and is hopefully better today. Assessment & Plan (08/29/2020 1:53 PM CDT): Renal function stable and should avoid NSAIDs. Assessment & Plan (02/22/2020 1:58 PM [employer]BLER): Renal function stable and should avoid NSAIDs. Assessment & Plan (08/22/2019 3:26 PM CDT): Renal function stable and should avoid NSAIDs. Assessment & Plan (02/15/2019 10:55 AM [employer]BLER): Renal function improved and should avoid NSAIDs. Assessment & Plan (08/17/2018 8:19 PM CDT): Renal function stable and should avoid NSAIDs. Assessment & Plan (03/12/2018 7:11 PM [employer]BLER): Renal function stable and should avoid NSAIDs. Assessment & Plan (08/12/2017 2:30 PM CDT): Renal function improving with reduced dose of omeprazole and furosemide and increased hydration. Avoid NSAIDs. History of pulmonary embolus (PE) 02/03/2017 Overview (04/06/2017): Unprovoked PE 01/2015. Choosing indefinite anticoagulation. Assessment & Plan (05/01/2024 1:15 PM [employer]): -chronic, stable -Discussed/ordered labs -continue on Eliquis [...] indefinitely. Assessment & Plan (04/05/2020 1:58 PM [employer] ASSEMBLER): Continue her Eliquis unless she has significant nasal bleeding.. Assessment & Plan (02/22/2020 1:57 PM [employer] ASSEMBLER): Continue Eliquis. Assessment & Plan (08/22/2019 3:26 PM CDT): Continue Eliquis indefinitely Assessment & Plan (08/17/2018 8:19 PM CDT): Continue Eliquis. Assessment & Plan (03/12/2018 7:10 PM [employer]BLER): Continue Eliquis. Assessment & Plan (04/06/2017 1:00 PM [employer] ASSEMBLER): Continue indefinite low-dose Eliquis. Assessment & Plan (02/03/2017 1:45 PM [employer]SEMBLER): Asymptomatic in office today without any concerns [...] ineffectiveness. Assessment & Plan (05/01/2024 12:36 PM [employer]BLER): -chronic, stable Continue on current meds omeprazole 20 mg daily, encouraged healthy diet and exercise Avoid trigger foods including: carbonated beverages, caffeine, spicy, fried foods, tomatoes, cucumbers, mint, and acidic fruits/juices like orange/lemon/grapefruit. Avoid eating/drinking anything for at least 2 hours before bed. Sleep with bed propped. Discussed increased risk of cdif , bone loss and vit B12 deficiency with intermediate frame tender use of PPI with pt, would like [...] recommended. Assessment & Plan (03/12/2018 7:10 PM [employer]BLER): Continue current PPI and the patient is aware of the long-term risks posed by chronic PPI usage. Magnesium level will be checked periodically. Calcium supplementation recommended. Assessment & Plan (08/12/2017 2:29 PM CDT): Well controlled on reduced dose of omeprazole. She is aware long-term risks posed by this medication. Check magnesium level occasionally. Assessment & Plan (04/06/2017 12:59 PM [employer]BLER): Decrease omeprazole to 20 mg daily. Patient aware long-term risk posed by chronic PPI usage including chronic kidney disease. Declines trial of H2 blockers as she has already failed these. Lifestyle modifications discussed. Assessment & Plan (02/03/2017 1:17 PM [employer]SEMBLER): Continue dietary management and Prilosec once daily for control. PPI risk benefit discussed in office today. Follow up in four months regarding condition Primary insomnia 10/24/2013 Overview (04/06/2017): Many years of lorazepam and trazodone. Assessment & Plan (05/01/2024 1:16 PM [employer]BLER): -chronic, improving -Discussed/ordered labs -continue seeing Neurology Assessment & Plan (06/30/2023 11:48 AM CDT): -chronic, stable -Discussed/ordered labs -continue seeing Neurology -continue on ramelteon 8 mg nightly Assessment & Plan (05/11/2023 6:40 PM [employer]SEMBLER): Continue ramelteon and follow-up with Neurology as needed. Assessment & Plan (02/02/2023 11:45 AM [employer] ASSEMBLER): Has been on lorazepam and trazadone in [...] monitor Assessment & Plan (02/22/2020 1:57 PM [employer]BLER): Well controlled on her trazodone. Assessment & Plan (03/12/2018 7:10 PM [employer]SEMBLER): Slowly increased melatonin. If no improvement by 10 mg nightly, increase trazodone. Assessment & Plan (08/12/2017 2:29 PM CDT): Well controlled on trazodone only. Assessment & Plan (04/06/2017 12:58 PM [employer]BLER): Recommend trying to slowly cut down on [...] readings Assessment & Plan (05/01/2024 1:14 PM [employer]BLER): -chronic, stable -Discussed/ordered labs -continue on carvedilol [...] pressure Assessment & Plan (05/11/2023 6:39 PM [employer]BLER): Blood pressure well controlled on carvedilol, irbesartan [...] hypertension. Assessment & Plan (04/15/2022 10:53 AM [employer]BLER): Well controlled on her irbesartan clonidine and carvedilol Assessment & Plan (10/08/2021 10:51 AM CDT): Well controlled on the current regimen. Avoidance of salt, proper body weight, and routine exercise recommended. Assessment & Plan (04/07/2021 2:47 PM [employer]BLER): Well controlled on the current regimen. Avoidance of salt, proper body weight, and routine exercise recommended. Assessment & Plan (08/29/2020 1:52 PM CDT): Well controlled on the current regimen. Avoidance of salt, proper body weight, and routine exercise recommended. Assessment & Plan (04/05/2020 1:57 PM [employer]SEMBLER): Well controlled on the current regimen. Avoidance of salt, proper body weight, and routine exercise recommended. Assessment & Plan (02/22/2020 1:57 PM [employer] ASSEMBLER): Well controlled on the current regimen. Avoidance of salt, proper body weight, and routine exercise recommended. Assessment & Plan (08/22/2019 3:27 PM CDT): Well controlled on the current regimen. Avoidance of salt, proper body weight, and routine exercise recommended. Assessment & Plan (02/15/2019 10:55 AM [employer]SEMBLER): Well controlled on the current regimen. Avoidance [...] 140/90. Assessment & Plan (03/12/2018 7:10 PM [employer]SEMBLER): Well controlled on the current regimen. Avoidance of salt, proper body weight, and routine exercise recommended. Assessment & Plan (08/12/2017 2:30 PM CDT): Well controlled on the current regimen. Avoidance of salt, proper body weight, and routine exercise recommended. Assessment & Plan (04/06/2017 1:03 PM [employer]SEMBLER): Labile over the years but seems to have evened out. Continue current medication regimen. We will see her back in 6 months for wellness visit fasting lab sooner if needed. Assessment & Plan (02/03/2017 1:14 PM [employer]SEMBLER): Stable. Pt was advised of continuing heart healthy DASH diet, increase exercise as tolerated, and continuing to monitor for any lower leg edema, headaches, changes in vision, or facial flushing. Continue ASA and anti-hypertensives as prescribed. Assessment & Plan (10/22/2016 11:41 AM CDT): Hypertension is controlled Hypercholesterolemia 02/12/2012 Overview (06/18/2016): Hypercholesterolemia Assessment & Plan (05/01/2024 12:53 PM [employer]): -chronic, stable -Discussed/ordered labs -continue on atorvastatin 40 mg daily Assessment & Plan (10/29/2023 1:41 PM CDT): -chronic, stable -Discussed/ordered labs -continue on atorvastatin 40 mg daily Assessment & Plan (06/30/2023 11:49 AM CDT): -chronic, stable -Discussed/ordered labs -continue on atorvastatin 40 mg daily Assessment & Plan (05/11/2023 6:40 PM [employer]BLER): Well controlled on current therapy and will check a lipid panel and LFTs in 6 months. Assessment & Plan (12/23/2022 1:06 PM CDT): Continue atorvastatin check lipids and LFTs before next visit Assessment & Plan (10/22/2022 5:59 PM CDT): Well controlled on current therapy and will check a lipid panel and LFTs in 6 months. Assessment & Plan (04/15/2022 10:53 AM [employer]BLER): Well controlled on current therapy and will check a lipid panel and LFTs in 6 months. Assessment & Plan (10/08/2021 10:51 AM CDT): Well controlled on current therapy and will check a lipid panel and LFTs in 12 months. Assessment & Plan (04/07/2021 2:47 PM [employer]BLER): Well controlled on current therapy and will check a lipid panel and LFTs in 6 months. Assessment & Plan (08/29/2020 1:52 PM CDT): Well controlled on current therapy and will check a lipid panel and LFTs in 6 months. Assessment & Plan (02/22/2020 1:56 PM [employer]BLER): Well controlled on current therapy and will check a lipid panel and LFTs in 6 months. Assessment & Plan (08/22/2019 3:26 PM CDT): Well controlled on current therapy and will check a lipid panel and LFTs in 12 months. Assessment & Plan (02/15/2019 10:55 AM [employer]BLER): Well controlled on current therapy and will check a lipid panel and LFTs in 6 months. Assessment & Plan (08/17/2018 8:19 PM CDT): Well controlled on current therapy and will check a lipid panel and LFTs in 6 months. Assessment & Plan (03/12/2018 7:10 PM [employer]BLER): Well controlled on current therapy and will check a lipid panel and LFTs in 6 months. Assessment & Plan (08/12/2017 2:29 PM CDT): Well controlled on current therapy and will check a lipid panel and LFTs in 6 months. Assessment & Plan (04/06/2017 12:58 PM [employer]BLER): Well controlled on current therapy and will check a lipid panel and LFTs in 6 months. Assessment & Plan (02/03/2017 1:16 PM [employer]BLER): Stable. Needs labs repeated in 1 months. Continue current dose of Lipitor, heart healthy diet, and increase exercise. Follow up in 1 month regarding condition for repeat labs Resolved Problems Problem Noted Date Diagnosed Date Resolved Date Altered mental status 12/23/20222023 Urinary tract infection with out hematuria, site unspecified 12/13/2022 06/28/2023 Acute metabolic encephalopathy 12/11/2022 06/28/2023 Assessment & Plan (02/02/2023 11:46 AM [employer]BLER): MRI, MRA and EEG while inpatient without [...] by Dr. Brizuela from ER visit at [facility] on 09/20/22. I also reviewed patient labs, ecg tracing, cxr, and head ct scan that were obtained in ER at [facility] on 09/20/22. Please see assessment and plan [...] visit Assessment & Plan (04/05/2020 1:57 PM [employer]SEMBLER): Augmentin and saline sinus rinses. Hold fluticasone for a week due to bloody discharge. call back if no improvement. Right serous otitis media 12/20/2017 Assessment & Plan (12/20/2017 3:50 PM CDT): Recommended Ceftin twice daily for 10 days along with continue her Flonase [id number] probiotics with use of antibiotics, use of [...] if needed At low risk for fall 08/12/2017 024 Assessment & Plan (10/22/2022 6:00 PM [...] 08/12/2017 Assessment & Plan (05/11/2023 6:40 PM [employer]BLER): Patient should reduce sugar and carbs, increase exercise, maintain proper body weight, and will check an A1c once or twice yearly. Assessment & Plan (10/22/2022 5:59 PM CDT): Patient should reduce sugar and carbs, increase exercise, maintain proper body weight, and will check an A1c once or twice yearly. Assessment & Plan (04/15/2022 10:52 AM [employer]SEMBLER): Patient should reduce sugar and carbs, increase exercise, maintain proper body weight, and will check an A1c once or twice yearly. Assessment & Plan (10/08/2021 10:52 AM CDT): Warned of impending diagnosis of diabetes. Avoid sugars and carbs and increase exercise. Check A1c and fasting blood sugar before next visit. Assessment & Plan (04/07/2021 2:47 PM S[employer]BLER): Patient should reduce sugar and carbs, increase exercise, maintain proper body weight, and will check an A1c once or twice yearly. Assessment & Plan (08/29/2020 1:53 PM CDT): Patient should reduce sugar and carbs, increase exercise, maintain proper body weight, and will check an A1c once or twice yearly. Assessment & Plan (02/22/2020 1:58 PM S[employer]BLER): Patient should reduce sugar and carbs, increase exercise, maintain proper body weight, and will check an A1c once or twice yearly. Assessment & Plan (08/22/2019 3:26 PM CDT): Patient should reduce sugar and carbs, increase exercise, maintain proper body weight, and will check an A1c once or twice yearly. Assessment & Plan (02/15/2019 10:54 AM S[employer]SEMBLER): Patient should reduce sugar and carbs, increase exercise, maintain proper body weight, and will check an A1c once or twice yearly. Assessment & Plan (08/17/2018 8:19 PM CDT): Patient should reduce sugar and carbs, increase exercise, maintain proper body weight, and will check an A1c once or twice yearly. Assessment & Plan (03/12/2018 7:11 PM S[employer]BLER): Patient should reduce sugar and carbs, increase exercise, maintain proper body weight, and will check an A1c once or twice yearly. Assessment & Plan (08/12/2017 2:30 PM CDT): Patient should reduce sugar and carbs, increase exercise, maintain proper body weight, and will check an A1c once or twice yearly. Preoperative clearance 02/03/201708/12 Assessment & Plan (02/03/2017 1:21 PM S[employer]SEMBLER): Pt was advised to continue current therapy [...] 18 Assessment & Plan (02/03/2017 1:13 PM S[employer] ASSEMBLER): Recommended patient to continue to increase heart healthy diet with adequate fruits, vegetables, and plenty of water along with mild-moderate daily exercise as tolerated. Chronic kidney disease (CKD) stage G3a/A2, moderately decreased glomerular filtration rate (GFR) between 45-59 mL/min/1.73 square meter and albuminuria creatinine ratio between 30-299 mg/g 12/30/2016 08/12/2017 Assessment & Plan (04/06/2017 1:00 PM [employer]SEMBLER): Likely due to age and hypertension. Will stop furosemide for now to see if it has any effect on her swelling. Hopefully this will improve her creatinine as well. Avoid NSAIDs. Assessment & Plan (02/03/2017 1:13 PM S[employer] ASSEMBLER): Most recent set of labs indicated a [...] 08/12/2017 Overview (06/18/2016): Gastroenteritis Status migrainosus 07/29/2013 4 Overview (06/18/2016): [facility] Immunizations Immunization Administration Dates Next Due Influenza, [...] ZOSTER LIVE 11/10/2010 ZOSTER Recombinant 12/06/2017, 8,08/22/2017,08/21 Social History Tobacco Use Types Packs/Day Years [...] often do you attend chur ch or jewish services? More than 4 times per year 12/21/2022 Do you belong to any clubs o r organizations such as shinto groups, unions, fraternal or athletic groups, or [...] place to sleep or slept in a senior care (including now)? No 12/21/2022 Personal Safety Answer Date Recorded Have you ever been in or are you currently in a harmful physical or emotional relationship or is someone making you feel afraid or unsafe? Denies 02/17/2024 Comments No Sex and Gender Information Value Date Recorded Sex Assigned at Not on file Legal Sex Female 6:04 PM [employer] Gender Identity Not on file Sexual [...] 08/18/2024 1:00 PM CDT Plan of Treatment Not on file Procedures Procedure Name Priority Date/Time Associated Diagnosis [...] Read Routine (OP Routine) 01/27/2023 11:25 AM [employer] Screening mammogram for breast cancer HM COLONOSCOPY Routine 09/07/2012 from Last 3 Months or Most Recently Relevant to Health Maintenance Results * Urine culture Urine, bladder (08/18/2024 1:16 PM CDT) Report Final Report: Less than 100,000 colonies/mL (clinically insignificant growth based on current clinical standards) Comment:Testing performed by : [facility], [address] [place]., [address] Organism (CLINICALLY INSIGNIFICANT GROWTH MICHAEL Urine, bladder 08/18/2024 1: 16 PM CDT 08/18/2024 10:22 PM CDT Narrative MICHAEL JONAS - 08/20/2024 6:17 AM CDT Testing performed by [facility] ([phone]) Yanique Cota NP LAB MICROBIOLOGY - GENERAL O RDERABLES Final Result MICHAEL [address] Department [place] [address] * POCT urinalysis dipstick (08/18/2024 1:09 PM CDT) Color, Urine, POC Yellow Clarity, ur, POC Clear Clear Glucose, ur, POC Negative Negative Bilirubin, ur, POC Negative Negative Ketones, ur, POC Negative Negative Specific [place], POC 1.010 1.003 - 1.030 Blood, ur, POC Negative Negative pH, ur, POC 6.0 5.0 - 8.0 Protein, ur, POC Negative Negative Urobilinogen, urine, POC 0.2 0.2 - 1.0 mg/dL Nitrite, ur, POC Negative Negative Leukocytes, ur, POC Negative Negative Lot Number [id number] 10\ Urine 08/18/2024 1:09 PM CDT us Yanique Cota NP POINT OF CARE TEST ORDERABLE S Final Result * Thyroid Function [place] (07/31/2024 9:38 AM CDT) TSH 2.28 0.30 - 4.20 mcIUnit/mL Blood 07/31/2024 9:38 AM CDT 07/31/2024 10:08 AM CDT us Yanique Cota NP LAB BLOOD ORDERABLES Final R esult MICHAEL [facility] ([place]) [address] [facility] Department of Laboratories [place], [place] [id number] * Dexa Axial Skeleton Bone Density 1 or 2 Site (12/28/2023 1:11 PM CDT) Anatomical Region Laterality Modality Body N/A Other 12/28/2023 7:26 PM CDT Narrative 12/28/2023 7:28 PM CDT EXAM DESCRIPTION: DEXA AXIAL SKELETON BONE DENSITY 1 OR MORE SITES REASON FOR STUDY: 83 y/o year old F with given history of: Post menopausal status. Patient takes vitamin-D and calcium. Tire Trimmer Hand/Model: Sontra (S/N [id number]) CLINICAL INFORMATION: Current height: 61 inches Maximum [...] Zainab Jacinto M.D. TW: TW Report ID: [id number] Reading Location: [id number] Procedure Note Zainab Jacinto MD - 12/28/2023 EXAM DESCRIPTION: DEXA AXIAL SKELETON BONE DENSITY 1 OR MORE SITES REASON FOR STUDY: 83 y/o year old F with given history of: Post menopausal status. Patient takes vitamin-D and calcium. Tire Trimmer Hand/Model: YODIL SL (S/N [id number]) CLINICAL INFORMATION: Current height: 61 inches Maximum [...] Electronically signed by Zainab Jacinto M.D. TW: YANG Report ID: [id number] Reading Location: [place] [address] Yanique Cota NP IM DXA PROCEDURES Final Res ult * Screening Mammogram Bilateral W Fan (01/27/2023 11:25 AM [employer]) Anatomical Region Laterality Modality Breast Bilateral Mammography 01/29/2023 8:12 AM [employer]ER Impressions 01/29/2023 8:12 AM [employer]ER There is no mammographic evidence of malignancy. A 1 year screening mammogram is recommended. BI-RADS: 2 - Benign. The patient has been or will be contacted. The patient will be entered into a reminder system with a target due date of 1 year for her next mammogram. Electronically signed by: Nathalia Mei M.D. 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 ADVANCE DIRECTIVE 12/21/2022 9:42 AM Power of Verification Engineer-Medical * Full Code (Latest Code Status on File) Date Activated Date Inactivated Comments 02/17/2024 10:13 AM 02/18/2024 4:52 AM * Full Code Date Activated Date Inactivated Comments 12/13/2022 7:35 PM 12/19/2022 4:48 PM Healthcare Agents on File Name Relationship Healthcare Agent Relationshi p Communication Brandon Delcid Son [employer] Alternate Health Car e Agent Care Teams Trust Manager Relationship Specialty Start Date End Date Yanique Cota NP [address] [place] [address] PCP - General Family Medicine 06/28/23 Shayne Vaz MD [address] [place] [address] Consulting Physician Neurology 12/19/22
== END 2024-08-29 14:22 | disposition home or self-care (01) ==
PROVIDERS: Visit Provider Neurological Surgery
DX: M16.12 Unilateral primary osteoarthritis, left hip (principal)
CPT/HCPCS: 73502